=== PATIENT | male | born 1970 | race Caucasian/White ===

== ENCOUNTER 2023-04-11 15:42 | Emergency (ER) | payer OTHER, SELFPAY ==
[2023-04-11 15:46] VITALS: BP 163/100
[2023-04-11 16:07] LABS: % Basophils 0.5 % (0-2); % Eosinophils 1.6 % (0-6); % Immature Granulocytes 0.3 % (0-0.5); % Lymphocytes 39.8 % (20.5-51.1); % Monocytes 7.8 % (1.7-9.3); Absolute Eosinophils 0.1 10^3/uL (0-0.7); Absolute Lymphocytes 2.9 10^3/uL (1.2-3.4); Absolute Monocytes 0.6 10^3/uL (0.1-0.6); Absolute Neutrophils 3.6 10^3/uL (1.4-6.5); Hematocrit 40.7 % (39.0-52.0); Hemoglobin 14.3 g/dL (13.0-18.0); Mean Corp Hgb Conc. 35.1 g/dL (33.0-37.0); Mean Corpuscular Hgb 30.1 pg (27.0-31.0); Mean Corpuscular Volume 85.7 fL (80.0-94.0); Mean Platelet Volume 9.7 fL (7.4-10.4); Nucleated Red Blood Cells % 0 % (-); Platelet Count 237 10^3/uL (130-400); Red Blood Cell Count 4.75 10^6/uL (4.70-6.10); Red Cell Dist. Width 11.9 % (11.5-14.5); White Blood Cell Count 7.3 10^3/uL (4.8-10.8)
[2023-04-11 16:30] LABS: Troponin I < 0.012 ng/ml
[2023-04-11 16:31] LABS: ALT (SGPT) 34 U/L (0-50); AST (SGOT) 24 U/L (17-59); Albumin 4.2 g/dl (3.5-5.0); Alkaline Phosphatase 73 U/L (38-126); Blood Urea Nitrogen 14 mg/dl (9-20); Calcium 9.6 mg/dl (8.4-10.2); Carbon Dioxide 28 mmol/L (22-30); Chloride 95 mmol/L (98-107); Glucose 273 mg/dl (70-99); Potassium 4.8 mmol/L (3.5-5.1); Sodium 134 mmol/L (135-145); Total Bilirubin 0.7 mg/dl (0.2-1.3); Total Protein 6.6 g/dl (6.3-8.2); eGFR > 60.00
[2023-04-11 17:13] VITALS: BMI 32.6
[2023-04-11 17:19] VITALS: BP 129/97
[2023-04-11 18:00] VITALS: BP 127/92
[2023-04-11] MEDS: NSS 1000 IV (18:30)
[2023-04-11] MEDS: TYLENOL 650 MG PO (18:30)
[2023-04-11 19:17] LABS: Lipase 108 U/L (23-300)
--- NOTE | 2023-04-11 19:20 | ED.GENMED ---
History of Present Illness
General
Chief Complaint: Chest Pain
Source: patient
Exam Limitations: none
Time Seen by Provider: 04/11/23 17:20
Nursing documentation reviewed up to this point in time: agreed with
Travel History
Have you had any contact with someone who has COVID-19?: No
Do you have any symptoms of coronavirus? Fever > 100 degrees, chills, cough, shortness of breath, sore throat, loss of taste or smell, muscle aches, or headache?: No
History of Present Illness
History of Present Illness:
pt is a 52 y/o IDDM, gerd
former alcohol abuse
anxiety
pt says he used to be on a lot of BP meds and used to be 300 pounds, alcoholic
in 2014- he went into recovery and lost weight and has been doing well the past few years
he does have h/o GERD
says he drank someone else's coffee in the afternoon 2 days ago and hasn't felt right ever since.
he chronically has tachycardia, russell being here
he used to be on med to help with that but stopped
he is having some pleuritic pain
took a dose of nitro with minimal relief, it was old;
no nausea, vomiting, diarphoresis, cough
Past History
Past History
ED Past Medical History: GERD, HTN (has not been taking his bp meds as he ran out of insurance. He use to see a director public policy and was taking Metoprolol, clonidine.), IDDM and Other (Lumbar disc disease)
ED Past Surgical History: Orthopedic
Social History
Tobacco: Former smoker (5 a day)
Alcohol: Occasional
Drug: None
Personal:
Living: with family
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
Family History
Family History: Early CAD (as above)
Review of Systems
Review of Systems
Allergies reviewed?: Yes
All Other Systems: Not applicable
Phy Exam
Physical Exam
Physical Exam:
GENERAL: Alert anxious
EYE: pupils equal and reactive
NECK: Supple
ENT: o/p clr, mmm.
CARDIAC tachycardia
some mild edema legs
LUNGS: , diminished, no acute respiratory distress, no wheezes/rales/rhonchi
ABDOMEN: Soft, without focal tenderness, no r/g, no cvat, normal bowel sounds
NEUROLOGICAL: Alert and oriented, no focal neuro deficits
SKIN: Warm and dry, skin intact.
MUSCULOSKELETAL: mild edema, well perfused. neg jimmy's sign
PSYCH: Normal and appropriate interaction.
Scores
Heart Score for Chest Pain Patients
STEMI patient?: No
History: Slightly or Non-Suspicious
ECG: Nonspecific Repolarization
Age: >45 - <65 years
Risk Factors: 1 or 2 Risk Factors
Troponin: </= Normal Limit
Heart Score for Chest Pain Patients: 3
Heart Score Risk: 2.5% MACE over next 6 weeks
Course
Orders/Labs/Results
Orders:
Orders
04/11/23 15:43
ECG [Electrocardiogram (*1)] Urgent
Reason for Study: Chest Pain
EKG- Treatment ONCE
04/11/23 15:56
Comprehensive Metabolic Panel Urgent
Lipase Urgent
Comment: ADD ON
Troponin I Urgent
04/11/23 15:57
Complete Blood Count/With Diff Urgent
04/11/23 18:24
CT Chest Pe Study Urgent
Comment:
Reason For Exam: left rib pain, lightheaded, tachy
0.9% Sodium Chloride 1000 ml [Nss] 1,000 ml IV BOLUS
Acetaminophen [Tylenol] 650 mg PO NOW STA
04/11/23 18:25
EKG- Treatment ONCE
04/11/23 18:26
Add On- LAB Urgent
Tests Added?: lipase
04/11/23 19:00
Electrocardiogram (*1) Urgent
Reason for Study: Chest Pain
04/11/23 19:08
Troponin I Urgent
Abnormal Lab Results
04/11/23
15:56
Sodium 134 L mmol/L
(135-145)
Chloride 95 L mmol/L
(98-107)
Glucose 273 H mg/dl
(70-99)
04/11/23 15:57
04/11/23 15:56
Vital Signs
Initial and Last Documented VS:
Initial Vital Signs
Temp Pulse Resp BP Pulse Ox
98.2 F 93 16 163/100 98
04/11/23 15:46 04/11/23 15:46 04/11/23 15:46 04/11/23 15:46 04/11/23 15:46
Last Documented Vital Signs
Temp Pulse Resp BP Pulse Ox
98.2 F 116 21 127/92 96
04/11/23 15:46 04/11/23 19:00 04/11/23 19:00 04/11/23 18:00 04/11/23 19:00
MDM/Problems Addressed
Differential Diagnosis Includes:
anxiety, PE, asthma, chf
MDM/Problems Addressed:
52 y/o M wit hh/o IDDM, former alcohol abuse
anxiety
here with cp x 2 days
drank someone elses coffee and hasn't felt right,
feels tight
seems anxious
tachycardic but says this is common for him
w/u for PE/acs
neg -->
pt is hyperglycemic
needs outaptient fu but no indication for hopsitalization.
pt says he will restart his bb for his tachycardia if it persists.
*Critical Care Note
Total Time (30-74mins, 75-104mins- exclusive of procedures): Not Applicable
ED Attending Note
-
Portions of this chart may have been created with voice recognition software.� Occasional wrong word or��sound alike� substitutions may have occurred due to the inherent limitations of voice recognition software.
Discharge Plan
Departure
Patient Disposition: Home (Routine Discharge)
Date of Disposition: 04/11/23
Time of Disposition: 19:57
Patient with high blood pressure during this ER visit?: Yes
Condition: Fair
Covid-19: Not Applicable
Discharge Problem:
Chest pain, Tachycardia, Hyperglycemia
Instructions: Chest Pain NON-DHP Personal Care Aid Follow Up, BLOOD PRESSURE
Prescriptions:
No Action
calcium carbonate [Oyster Shell Calcium 500] 500 MG tablet
500 mg PO DAILY
magnesium oxide 500 MG tablet
500 mg PO DAILY
insulin aspart U-100 [Novolog FlexPen U-100 Insulin] 300 UNITS/3 ML insulin pen
0 units SC .SLIDING SCALE
Patient Comments:
12/24/20 - sliding scale based on carb intake
zinc sulfate 220 MG capsule
220 mg PO DAILY
cholecalciferol (vitamin D3) 1,000 UNITS tablet
1,000 units PO DAILY
insulin glargine [Lantus Solostar U-100 Insulin] 300 UNITS/3 ML insulin pen
16 units SC HS
multivitamin with folic acid [Tab-A-Diamatne] 1 TABLET tablet
1 tab PO DAILY
ibuprofen 200 MG tablet
800 mg PO DAILYPRN PRN (Reason: back/shoulder pain)
Referrals:
Erickson Salgado MD [Active] - Follow up in 5-7 days (cardiology)
UNKNOWN - PT DOES,NOT KNOW [Family Provider] -
Activity Restrictions/Additional Instructions:
Your blood work was negative for signs of a heart attack. You did have an elevated sugar, make sure to dose your insulin appropriately. Your CAT scan was negative for a blood clot. You did have a high resting heart rate which she said you have
had a history of before. You should follow-up with your family doctor, you may need to be restarted on medication for this. Not sure what is causing your chest pain but it does not seem to be an emergency. Please follow-up with both your
director public policy and your family doctor. If you do not wish to go back to your old director public policy you can see [facility]
Interventions
Interventions:
*Risk Screen - Suicide Last Done: 04/11/23 17:13
*General Assessment Last Done: 04/11/23 17:13
*Neglect/Abuse Screening Last Done: 04/11/23 17:13
ED- Fall Risk Assessment Last Done: 04/11/23 17:19
*ED COVID-19 Vaccine History Last Done: 04/11/23 15:46
*Nursing Disposition Last Done: 04/11/23 20:14
ED- Cardiac Assessment Last Done: 04/11/23 17:19
Discharge Date and Time
Discharge Date/Time: 04/11/23 20:15
[2023-04-11 19:45] LABS: Troponin I < 0.012 ng/ml
== END 2023-04-11 20:15 | disposition home or self-care (01) ==
LOC: EMR 15:42
PROVIDERS: Emergency Medicine; Physician Assistant; EMERGENCY PHYSICIAN Emergency Medicine
DX: R07.89 Other chest pain (principal); R00.0 Tachycardia, unspecified; E11.65 Type 2 diabetes mellitus with hyperglycemia; K21.9 Gastro-esophageal reflux disease without esophagitis; F10.10 Alcohol abuse, uncomplicated; F41.9 Anxiety disorder, unspecified
CPT/HCPCS: 99284; 96360; 71275; 80053; 83690; 84484; 85025; 93005; Q9967

== ENCOUNTER 2024-03-12 17:55 | Emergency (ER) | payer OTHER, SELFPAY ==
[2024-03-12 18:20] VITALS: BP 155/112
--- NOTE | 2024-03-12 18:20 | ED.MUSCINJ ---
HPI-Injury
General
Chief Complaint: Musculo-Skeletal Complaint
History of Present Illness-Injury
Initial Injury comments:
..
ED Provider Triage
-
Patient seen by provider in Triage?: Seen in Triage
Attestation: A medical screening examination has been initiated by a qualified medical provider. Based on the assessment performed at this time, it has been determined that an emergent medical condition may exist and the patient has been informed
that further medical evaluation and possible additional diagnostic testing may be needed.
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
Has also had painful 'bumps' along his lower lip.
Has not had Trulicity in stock so hasn't taken it in two weeks.
GENERAL: Alert , in no apparent distress
EYE: No visual abnormalities.
NECK: Trachea midline
ENT: No visible abnormalities.
LUNGS: No acute respiratory distress
NEUROLOGICAL: Alert and oriented
SKIN: Few small tender lesions lower lip vermilion border. Pad of right thumb is swollen and tender, erythematous at the nail line. No visible changes.
MUSCULOSKELETAL: Moving extremities normally
PSYCH: Normal and appropriate interaction.
This is a medical evaluation conducted in person to initiate diagnostic evaluation and provide initial therapeutics. Please see further documentation by the treating clinician.
Past History
Past History
ED Past Medical History: GERD, HTN (has not been taking his bp meds as he ran out of insurance. He use to see a roll or tape edge machine operator and was taking Metoprolol, clonidine.), IDDM and Other (Lumbar disc disease)
ED Past Surgical History: Orthopedic
Social History
Tobacco: Former smoker (5 a day)
Alcohol: Occasional
Drug: None
Personal:
Living: with family
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
Family History
Family History: Early CAD (as above)
Phy Exam
Physical Exam
Physical Exam:
..
Injury Course
Orders/Labs/Results
Orders:
Orders
03/12/24 18:26
Thumb/Finger 2 View Rt [CR Finger(s)/thumb Min 2 Vw Rt] Urgent
Comment:
Reason For Exam: pain, pad looks infected, IDDM
03/12/24 18:36
Complete Blood Count/With Diff Urgent
Comprehensive Metabolic Panel Urgent
Abnormal Lab Results
03/12/24
18:36
WBC 11.6 H 10^3/uL
(4.8-10.8)
RBC 4.50 L 10^6/uL
(4.70-6.10)
Hct 38.6 L %
(39.0-52.0)
MPV 10.8 H fL
(7.4-10.4)
Abs Immat Gran (auto) 0.1 H 10^3/uL
(0-0.05)
Absolute Neuts (auto) 8.1 H 10^3/uL
(1.4-6.5)
Absolute Monos (auto) 0.9 H 10^3/uL
(0.1-0.6)
Lymphocytes % 19.0 L %
(20.5-51.1)
Sodium 128 L mmol/L
(135-145)
Chloride 90 L mmol/L
(98-107)
BUN 21 H mg/dl
(9-20)
Glucose 502 H* mg/dl
(70-99)
03/12/24 18:36
03/12/24 18:36
*Critical Care Note
Total Time (30-74mins, 75-104mins- exclusive of procedures): Not Applicable
ED Attending Note
-
Portions of this chart may have been created with voice recognition software.� Occasional wrong word or��sound alike� substitutions may have occurred due to the inherent limitations of voice recognition software.
Discharge Plan
Departure
Patient Disposition: Elopement
Prescriptions:
No Action
calcium carbonate [Oyster Shell Calcium 500] 500 MG tablet
500 mg PO DAILY
magnesium oxide 500 MG tablet
500 mg PO DAILY
insulin aspart U-100 [Novolog FlexPen U-100 Insulin] 300 UNITS/3 ML insulin pen
0 units SC .SLIDING SCALE
Patient Comments:
12/24/20 - sliding scale based on carb intake
zinc sulfate 220 MG capsule
220 mg PO DAILY
cholecalciferol (vitamin D3) 1,000 UNITS tablet
1,000 units PO DAILY
insulin glargine [Lantus Solostar U-100 Insulin] 300 UNITS/3 ML insulin pen
16 units SC HS
multivitamin with folic acid [Tab-A-Diamante] 1 TABLET tablet
1 tab PO DAILY
ibuprofen 200 MG tablet
800 mg PO DAILYPRN PRN (Reason: back/shoulder pain)
Referrals:
UNKNOWN,NO INTERVIEW [Family Provider] -
Interventions
Interventions:
*Risk Screen - Suicide Last Done: 03/12/24 18:20
*General Assessment Last Done: 03/12/24 18:20
*Neglect/Abuse Screening Last Done: 03/12/24 18:20
*Nursing Disposition Last Done: 03/12/24 19:53
Discharge Date and Time
Discharge Date/Time: 03/12/24 19:53
Print Language: ICELANDIC
[2024-03-12 18:58] LABS: % Basophils 0.3 % (0-2); % Eosinophils 1.9 % (0-6); % Immature Granulocytes 0.4 % (0-0.5); % Monocytes 7.9 % (1.7-9.3); % Neutrophils 70.5 % (42.2-75.2); Absolute Eosinophils 0.2 10^3/uL (0-0.7); Absolute Immature Granulocytes 0.1 10^3/uL (0-0.05); Absolute Lymphocytes 2.2 10^3/uL (1.2-3.4); Absolute Monocytes 0.9 10^3/uL (0.1-0.6); Absolute Neutrophils 8.1 10^3/uL (1.4-6.5); Hematocrit 38.6 % (39.0-52.0); Hemoglobin 13.6 g/dL (13.0-18.0); Mean Corp Hgb Conc. 35.2 g/dL (33.0-37.0); Mean Corpuscular Hgb 30.2 pg (27.0-31.0); Mean Corpuscular Volume 85.8 fL (80.0-94.0); Mean Platelet Volume 10.8 fL (7.4-10.4); Nucleated Red Blood Cells % 0 % (-); Platelet Count 221 10^3/uL (130-400); White Blood Cell Count 11.6 10^3/uL (4.8-10.8)
[2024-03-12 19:12] LABS: AST (SGOT) 26 U/L (17-59); Albumin 4.3 g/dl (3.5-5.0); Alkaline Phosphatase 83 U/L (38-126); Blood Urea Nitrogen 21 mg/dl (9-20); Calcium 9.1 mg/dl (8.4-10.2); Carbon Dioxide 24 mmol/L (22-30); Chloride 90 mmol/L (98-107); Glucose 502 mg/dl (70-99); Potassium 4.6 mmol/L (3.5-5.1); Sodium 128 mmol/L (135-145); Total Bilirubin 0.4 mg/dl (0.2-1.3); Total Protein 6.8 g/dl (6.3-8.2); eGFR > 60.00
[2024-03-12 19:23] LABS: ALT (SGPT) 41 U/L (0-50)
== END 2024-03-12 19:53 | disposition left against medical advice (07) ==
LOC: EMR 17:55
PROVIDERS: Registered Nurse
DX: E11.65 Type 2 diabetes mellitus with hyperglycemia (principal); E87.1 Hypo-osmolality and hyponatremia; Z87.891 Personal history of nicotine dependence; Z53.21 Procedure and treatment not carried out due to patient leaving prior to being seen by health care provider
CPT/HCPCS: 99281; 73140; 80053; 85025

== ENCOUNTER 2024-03-13 23:23 | Inpatient (IN) | payer OTHER, SELFPAY ==
[2024-03-13 19:26] VITALS: BP 179/115
--- NOTE | 2024-03-13 19:48 | ED.GENMED ---
ED Provider Triage
<Swetha Posey PA-C - Last Filed: 03/13/24 19:48>
-
Patient seen by provider in Triage?: Seen in Triage
pt is a
History of Present Illness
<Swetha Posey PA-C - Last Filed: 03/13/24 19:48>
General
Chief Complaint: Blood Sugar Problem
Time Seen by Provider: 03/13/24 21:14
<BERENICE Nichols - Last Filed: 03/14/24 00:30>
General
Source: patient
Exam Limitations: none
History of Present Illness
History of Present Illness:
This is a 53 year old male that comes in with c/o lower lip swelling. Patient was seen here yesterday for a thumb issue and signed out AMA. States that today he went to the PCP as he had a pimple on the lower lip and he popped it. States that know
his lip is swollen and its hard for him to swallow. States that the PCP told him to come back to the Emergency room. States that he has a headache. Denies any fever, chills, chest pain, SOB, abd pain, nausea, vomiting, diarrhea, dizziness, urinary
burning.
Past History
<Swetha Posey PA-C - Last Filed: 03/13/24 19:48>
Past History
ED Past Medical History: GERD, HTN (has not been taking his bp meds as he ran out of insurance. He use to see a principal planner and was taking Metoprolol, clonidine.), IDDM and Other (Lumbar disc disease)
ED Past Surgical History: Orthopedic
Social History
Tobacco: Former smoker (5 a day)
Alcohol: Occasional
Drug: None
Personal:
Living: with family
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
Family History
Family History: Early CAD (as above)
<BERENICE Nichols - Last Filed: 03/14/24 00:30>
Past History
ED Past Medical History: Asthma, Psychiatric (Anxiety, ) and Other (Lumbar disc disease, left leg fracture, )
ED Past Surgical History: Orthopedic (Jaw reconstruction) and Other (Varicose vein surgery, )
Social History
Tobacco: Former smoker (5 a day, Use to vap and chew tobacco)
Alcohol: Former
Personal:
Review of Systems
<BERENICE Nichols - Last Filed: 03/14/24 00:30>
Review of Systems
All Other Systems: ROS reviewed and negative except as documented in HPI and ROS
Constitutional: Reports no symptoms; Denies fever or chills
EENT: Reports other (Lower lip swelling, Difficulty swallowing)
Respiratory: Reports no symptoms; Denies cough or trouble breathing
Cardiac: Reports no symptoms; Denies chest pain
ABD/GI: Reports no symptoms; Denies abdominal pain, nausea, vomiting or diarrhea
: Reports no symptoms; Denies dysuria, frequency or urgency
Musculoskeletal: Reports no symptoms
Skin: Reports no symptoms
Neurological: Reports headache; Denies dizzy
Psychiatric: Reports no symptoms
Phy Exam
<BERENICE Nichols - Last Filed: 03/14/24 00:30>
General Physical Exam
General Presentation: no apparent distress
General age: appears stated age
General Skin: warm and dry
General Habitus: normal
General Mental: alert and anxious
General Hydration: appears well hydrated
ENT Exam
ENT Exam: TM's normal, pharynx normal, neck supple and other (Lower lip swelling with redness. )
Eye Exam
Eye Exam: EOMI
Cardiovascular Exam
Cardiovascular Exam: no edema, normal peripheral pulses and tachycardia
Pulmonary Exam
Pulmonary Exam: lungs clear, no respiratory distress, no rales, chest non tender, no crackles, no rhonchi, no wheezing and no cough
Gastrointestinal Exam
Gastrointestinal Exam: normal bowel sounds, non tender, soft, no organomegaly, no pulsatile mass and non distended
Musculoskeletal Exam
Musculoskeletal Exam: full ROM, no edema and other (Hard palpable mass on the left lateral neck just under the ear. )
Skin Exam
Skin Exam: normal color, warm/dry, no petechia and redness (Lower lip with swelling. )
Psychiatric Exam
Psychiatric Exam: anxious
Course
<Swetha Posey PA-C - Last Filed: 03/13/24 19:48>
Orders/Labs/Results
Orders:
Orders
03/13/24 Breakfast
2200 calorie (18 carb) Diabetic
At Your Request: Full Participation
03/13/24 19:44
BHB [B-Hydroxybutyrate] Urgent
Complete Blood Count/With Diff Urgent
Comprehensive Metabolic Panel Urgent
03/13/24 21:27
Urinalysis Reflex To Culture Urgent
0.9% Sodium Chloride 1000 ml [Nss] 1,000 ml IV BOLUS
03/13/24 21:29
Insulin Aspart [NOVOLOG vial] 10 units SC NOW STA
03/13/24 21:53
Lactic Acid Urgent
Blood Culture Q30M
LALO Source: Blood/Venous
Specimen Description:
Blood Culture Q30M
LALO Source: Blood/Venous
Specimen Description:
03/13/24 22:30
HYDROmorphone [Dilaudid] 0.5 mg IV NOW STA
Meropenem [Merrem] 1,000 mg IV NOW STA
Ondansetron Injectable [Zofran] 4 mg IV NOW STA
03/13/24 22:32
Vancomycin [Vancocin] 2,000 mg 0.9% Sodium Chloride 500 ml [Nss] 500 ml IV NOW
03/13/24 22:54
CT Neck With Iv Contrast Urgent
Comment:
Reason For Exam: lower lip swelling extending to neck/submental reg
03/13/24 23:04
Admit/Transfer Patient As Directed
Co-Sign Provider:
Level of Care: Inpatient admission
Assign to:: Telemetry
Physician / Group: haim
Diagnosis: cellulitis
Reason for Telemetry: Other
Other Reason for Telemetry: tachcyardia
Date to Stop Telemetry: 03/15/24
Time to Stop Telemetry: 11:00
Reason for Hospitalization: cellulitis
Expected length of stay greater than two midnights?: Yes
ELOS- Estimated Length of Stay in days: 3
I certify the patient meets the requirements for IP care: Yes
03/13/24 23:05
Code Status As Directed
Resuscitation Status: Full Code
PRN Pain Medication Management As Directed
May give lesser potent ordered pain med per pt: Yes
preference::
Protocol:: Medication orders for pain may be administered in a
manner that supports deferring to patient preference
when the pt is:
- Requesting an ordered lesser potent pain medication.
Least to most potent pain medications are defined
as: acetaminophen < NSAID < tramadol < opioids
(morphine, oxycodone, hydromorphone).
- Requesting a lesser dose of the same medication IF
ORDERED.
- Requesting a less intrusive route of administration
if both routes are prescribed by the provider (PO <
IV).
03/13/24 23:34
0.9% Sodium Chloride 1000 ml [Nss] 1,000 ml IV 140 mls/hr
Acetaminophen [Tylenol/Feverall] 650 mg RECTAL Q4HPRN PRN
Acetaminophen [Tylenol] 650 mg PO Q4HPRN PRN
Dextrose 50%-Water [Dextrose 50% Syringe] 12.5 grams IV [id number] PRN
Glucagon [GlucaGen] 1 mg IM PRN PRN
HYDROmorphone [Dilaudid] 1 mg IV Q4HPRN PRN
Labetalol HCl [Trandate] 10 mg IV Q6HPRN PRN
VANCOMYCIN Pharmacy to Dose [VANCOCIN Pharmacy to Dose] 1 each Pharmacy To Prepare [Call Pharmacy To Prepare] 0 ml IV PER PROTOCOL
Zolpidem Tartrate [Ambien] 5 mg PO HSPRN PRN
03/13/24 23:34
Activity As Directed
Activity Level: Out of Bed-Early Mobility
Bedside Glucose Monitoring As Directed
Frequency: AC&HS
Additional Instructions:: Change to q6h if pt on TPN, tube feeding or not eating
Intake/ Output As Directed
Frequency: Per unit guidelines
Vital Signs As Directed
Frequency: Per unit guidelines
DX Deep Vein Thrombosis Video Routine
03/14/24 04:00
Lactic Acid Q6H
03/14/24 06:00
BMP [Basic Metabolic Panel] IN AM
Complete Blood Count/No Diff IN AM
Glycohemoglobin (HgbA1c) IN AM
Meropenem [Merrem] 500 mg IV Q6H
03/14/24 07:30
Insulin Aspart Corrective Mod [Novolog Flexpen-Moderate Resistance] See Protocol SC AC
03/14/24 08:00
Pantoprazole [Protonix] 40 mg PO DAILY
03/14/24 10:00
Lactic Acid Q6H
03/14/24 18:00
Enoxaparin Sodium [Lovenox] 40 mg SC QPM
03/15/24 06:00
BMP [Basic Metabolic Panel] IN AM
Complete Blood Count/No Diff IN AM
03/15/24 11:00
DC Protocol for Telemetry ONCE
03/16/24 06:00
BMP [Basic Metabolic Panel] IN AM
Complete Blood Count/No Diff IN AM
03/17/24 06:00
Complete Blood Count/No Diff IN AM
Abnormal Lab Results
03/13/24 03/13/24
19:44 21:53
WBC 22.8 H 10^3/uL
(4.8-10.8)
RBC 4.65 L 10^6/uL
(4.70-6.10)
MPV 10.5 H fL
(7.4-10.4)
Abs Immat Gran (auto) 0.1 H 10^3/uL
(0-0.05)
Absolute Neuts (auto) 19.3 H 10^3/uL
(1.4-6.5)
Absolute Monos (auto) 1.4 H 10^3/uL
(0.1-0.6)
Immature Gran % 0.6 H %
(0-0.5)
Neutrophils % 84.6 H %
(42.2-75.2)
Lymphocytes % 8.0 L %
(20.5-51.1)
Sodium 127 L mmol/L
(135-145)
Chloride 88 L mmol/L
(98-107)
BUN 26 H mg/dl
(9-20)
Creatinine 0.6 L mg/dL
(0.7-1.3)
Glucose 414 H mg/dl
(70-99)
Lactic Acid 2.2 H mmol/L
(0.7-2.0)
03/13/24 19:44
03/13/24 19:44
Vital Signs
Initial and Last Documented VS:
Initial Vital Signs
Temp Pulse Resp BP Pulse Ox
98.1 F 104 20 179/115 98
03/13/24 19:26 03/13/24 19:26 03/13/24 19:26 03/13/24 19:26 03/13/24 19:26
Last Documented Vital Signs
Temp Pulse Resp BP Pulse Ox
99.6 F 104 20 179/115 98
03/13/24 21:58 03/13/24 19:26 03/13/24 19:26 03/13/24 19:26 03/13/24 19:26
<BERENICE Nichols - Last Filed: 03/14/24 00:30>
Orders/Labs/Results
Orders:
Orders
03/13/24 Breakfast
2200 calorie (18 carb) Diabetic
At Your Request: Full Participation
03/13/24 19:44
BHB [B-Hydroxybutyrate] Urgent
Complete Blood Count/With Diff Urgent
Comprehensive Metabolic Panel Urgent
03/13/24 21:27
Urinalysis Reflex To Culture Urgent
0.9% Sodium Chloride 1000 ml [Nss] 1,000 ml IV BOLUS
03/13/24 21:29
Insulin Aspart [NOVOLOG vial] 10 units SC NOW STA
03/13/24 21:53
Lactic Acid Urgent
Blood Culture Q30M
LALO Source: Blood/Venous
Specimen Description:
Blood Culture Q30M
LALO Source: Blood/Venous
Specimen Description:
03/13/24 22:30
HYDROmorphone [Dilaudid] 0.5 mg IV NOW STA
Meropenem [Merrem] 1,000 mg IV NOW STA
Ondansetron Injectable [Zofran] 4 mg IV NOW STA
03/13/24 22:32
Vancomycin [Vancocin] 2,000 mg 0.9% Sodium Chloride 500 ml [Nss] 500 ml IV NOW
03/13/24 22:54
CT Neck With Iv Contrast Urgent
Comment:
Reason For Exam: lower lip swelling extending to neck/submental reg
03/13/24 23:04
Admit/Transfer Patient As Directed
Co-Sign Provider:
Level of Care: Inpatient admission
Assign to:: Telemetry
Physician / Group: haim
Diagnosis: cellulitis
Reason for Telemetry: Other
Other Reason for Telemetry: tachcyardia
Date to Stop Telemetry: 03/15/24
Time to Stop Telemetry: 11:00
Reason for Hospitalization: cellulitis
Expected length of stay greater than two midnights?: Yes
ELOS- Estimated Length of Stay in days: 3
I certify the patient meets the requirements for IP care: Yes
03/13/24 23:05
Code Status As Directed
Resuscitation Status: Full Code
PRN Pain Medication Management As Directed
May give lesser potent ordered pain med per pt: Yes
preference::
Protocol:: Medication orders for pain may be administered in a
manner that supports deferring to patient preference
when the pt is:
- Requesting an ordered lesser potent pain medication.
Least to most potent pain medications are defined
as: acetaminophen < NSAID < tramadol < opioids
(morphine, oxycodone, hydromorphone).
- Requesting a lesser dose of the same medication IF
ORDERED.
- Requesting a less intrusive route of administration
if both routes are prescribed by the provider (PO <
IV).
03/13/24 23:34
0.9% Sodium Chloride 1000 ml [Nss] 1,000 ml IV 140 mls/hr
Acetaminophen [Tylenol/Feverall] 650 mg RECTAL Q4HPRN PRN
Acetaminophen [Tylenol] 650 mg PO Q4HPRN PRN
Dextrose 50%-Water [Dextrose 50% Syringe] 12.5 grams IV [id number] PRN
Glucagon [GlucaGen] 1 mg IM PRN PRN
HYDROmorphone [Dilaudid] 1 mg IV Q4HPRN PRN
Labetalol HCl [Trandate] 10 mg IV Q6HPRN PRN
VANCOMYCIN Pharmacy to Dose [VANCOCIN Pharmacy to Dose] 1 each Pharmacy To Prepare [Call Pharmacy To Prepare] 0 ml IV PER PROTOCOL
Zolpidem Tartrate [Ambien] 5 mg PO HSPRN PRN
03/13/24 23:34
Activity As Directed
Activity Level: Out of Bed-Early Mobility
Bedside Glucose Monitoring As Directed
Frequency: AC&HS
Additional Instructions:: Change to q6h if pt on TPN, tube feeding or not eating
Intake/ Output As Directed
Frequency: Per unit guidelines
Vital Signs As Directed
Frequency: Per unit guidelines
DX Deep Vein Thrombosis Video Routine
03/14/24 04:00
Lactic Acid Q6H
03/14/24 06:00
BMP [Basic Metabolic Panel] IN AM
Complete Blood Count/No Diff IN AM
Glycohemoglobin (HgbA1c) IN AM
Meropenem [Merrem] 500 mg IV Q6H
03/14/24 07:30
Insulin Aspart Corrective Mod [Novolog Flexpen-Moderate Resistance] See Protocol SC AC
03/14/24 08:00
Pantoprazole [Protonix] 40 mg PO DAILY
03/14/24 10:00
Lactic Acid Q6H
03/14/24 18:00
Enoxaparin Sodium [Lovenox] 40 mg SC QPM
03/15/24 06:00
BMP [Basic Metabolic Panel] IN AM
Complete Blood Count/No Diff IN AM
03/15/24 11:00
DC Protocol for Telemetry ONCE
03/16/24 06:00
BMP [Basic Metabolic Panel] IN AM
Complete Blood Count/No Diff IN AM
03/17/24 06:00
Complete Blood Count/No Diff IN AM
Abnormal Lab Results
03/13/24 03/13/24
19:44 21:53
WBC 22.8 H 10^3/uL
(4.8-10.8)
RBC 4.65 L 10^6/uL
(4.70-6.10)
MPV 10.5 H fL
(7.4-10.4)
Abs Immat Gran (auto) 0.1 H 10^3/uL
(0-0.05)
Absolute Neuts (auto) 19.3 H 10^3/uL
(1.4-6.5)
Absolute Monos (auto) 1.4 H 10^3/uL
(0.1-0.6)
Immature Gran % 0.6 H %
(0-0.5)
Neutrophils % 84.6 H %
(42.2-75.2)
Lymphocytes % 8.0 L %
(20.5-51.1)
Sodium 127 L mmol/L
(135-145)
Chloride 88 L mmol/L
(98-107)
BUN 26 H mg/dl
(9-20)
Creatinine 0.6 L mg/dL
(0.7-1.3)
Glucose 414 H mg/dl
(70-99)
Lactic Acid 2.2 H mmol/L
(0.7-2.0)
03/13/24 19:44
03/13/24 19:44
Leukocytosis, Hyponatremia. Chloride low. Dehydration. Hyperglycemia. B-Hydroxybutyrate normal at 0.11, Anion gap 13
Vital Signs
Initial and Last Documented VS:
Initial Vital Signs
Temp Pulse Resp BP Pulse Ox
98.1 F 104 20 179/115 98
03/13/24 19:26 03/13/24 19:26 03/13/24 19:26 03/13/24 19:26 03/13/24 19:26
Last Documented Vital Signs
Temp Pulse Resp BP Pulse Ox
99.6 F 104 20 179/115 98
03/13/24 21:58 03/13/24 19:26 03/13/24 19:26 03/13/24 19:26 03/13/24 19:26
<Duran Winter MD - Last Filed: 03/13/24 22:54>
Orders/Labs/Results
Orders:
Orders
03/13/24 Breakfast
2200 calorie (18 carb) Diabetic
At Your Request: Full Participation
03/13/24 19:44
BHB [B-Hydroxybutyrate] Urgent
Complete Blood Count/With Diff Urgent
Comprehensive Metabolic Panel Urgent
03/13/24 21:27
Urinalysis Reflex To Culture Urgent
0.9% Sodium Chloride 1000 ml [Nss] 1,000 ml IV BOLUS
03/13/24 21:29
Insulin Aspart [NOVOLOG vial] 10 units SC NOW STA
03/13/24 21:53
Lactic Acid Urgent
Blood Culture Q30M
LALO Source: Blood/Venous
Specimen Description:
Blood Culture Q30M
LALO Source: Blood/Venous
Specimen Description:
03/13/24 22:30
HYDROmorphone [Dilaudid] 0.5 mg IV NOW STA
Meropenem [Merrem] 1,000 mg IV NOW STA
Ondansetron Injectable [Zofran] 4 mg IV NOW STA
03/13/24 22:32
Vancomycin [Vancocin] 2,000 mg 0.9% Sodium Chloride 500 ml [Nss] 500 ml IV NOW
03/13/24 22:54
CT Neck With Iv Contrast Urgent
Comment:
Reason For Exam: lower lip swelling extending to neck/submental reg
03/13/24 23:04
Admit/Transfer Patient As Directed
Co-Sign Provider:
Level of Care: Inpatient admission
Assign to:: Telemetry
Physician / Group: haim
Diagnosis: cellulitis
Reason for Telemetry: Other
Other Reason for Telemetry: tachcyardia
Date to Stop Telemetry: 03/15/24
Time to Stop Telemetry: 11:00
Reason for Hospitalization: cellulitis
Expected length of stay greater than two midnights?: Yes
ELOS- Estimated Length of Stay in days: 3
I certify the patient meets the requirements for IP care: Yes
03/13/24 23:05
Code Status As Directed
Resuscitation Status: Full Code
PRN Pain Medication Management As Directed
May give lesser potent ordered pain med per pt: Yes
preference::
Protocol:: Medication orders for pain may be administered in a
manner that supports deferring to patient preference
when the pt is:
- Requesting an ordered lesser potent pain medication.
Least to most potent pain medications are defined
as: acetaminophen < NSAID < tramadol < opioids
(morphine, oxycodone, hydromorphone).
- Requesting a lesser dose of the same medication IF
ORDERED.
- Requesting a less intrusive route of administration
if both routes are prescribed by the provider (PO <
IV).
03/13/24 23:34
0.9% Sodium Chloride 1000 ml [Nss] 1,000 ml IV 140 mls/hr
Acetaminophen [Tylenol/Feverall] 650 mg RECTAL Q4HPRN PRN
Acetaminophen [Tylenol] 650 mg PO Q4HPRN PRN
Dextrose 50%-Water [Dextrose 50% Syringe] 12.5 grams IV [id number] PRN
Glucagon [GlucaGen] 1 mg IM PRN PRN
HYDROmorphone [Dilaudid] 1 mg IV Q4HPRN PRN
Labetalol HCl [Trandate] 10 mg IV Q6HPRN PRN
VANCOMYCIN Pharmacy to Dose [VANCOCIN Pharmacy to Dose] 1 each Pharmacy To Prepare [Call Pharmacy To Prepare] 0 ml IV PER PROTOCOL
Zolpidem Tartrate [Ambien] 5 mg PO HSPRN PRN
03/13/24 23:34
Activity As Directed
Activity Level: Out of Bed-Early Mobility
Bedside Glucose Monitoring As Directed
Frequency: AC&HS
Additional Instructions:: Change to q6h if pt on TPN, tube feeding or not eating
Intake/ Output As Directed
Frequency: Per unit guidelines
Vital Signs As Directed
Frequency: Per unit guidelines
DX Deep Vein Thrombosis Video Routine
03/14/24 04:00
Lactic Acid Q6H
03/14/24 06:00
BMP [Basic Metabolic Panel] IN AM
Complete Blood Count/No Diff IN AM
Glycohemoglobin (HgbA1c) IN AM
Meropenem [Merrem] 500 mg IV Q6H
03/14/24 07:30
Insulin Aspart Corrective Mod [Novolog Flexpen-Moderate Resistance] See Protocol SC AC
03/14/24 08:00
Pantoprazole [Protonix] 40 mg PO DAILY
03/14/24 10:00
Lactic Acid Q6H
03/14/24 18:00
Enoxaparin Sodium [Lovenox] 40 mg SC QPM
03/15/24 06:00
BMP [Basic Metabolic Panel] IN AM
Complete Blood Count/No Diff IN AM
03/15/24 11:00
DC Protocol for Telemetry ONCE
03/16/24 06:00
BMP [Basic Metabolic Panel] IN AM
Complete Blood Count/No Diff IN AM
03/17/24 06:00
Complete Blood Count/No Diff IN AM
Abnormal Lab Results
03/13/24 03/13/24
19:44 21:53
WBC 22.8 H 10^3/uL
(4.8-10.8)
RBC 4.65 L 10^6/uL
(4.70-6.10)
MPV 10.5 H fL
(7.4-10.4)
Abs Immat Gran (auto) 0.1 H 10^3/uL
(0-0.05)
Absolute Neuts (auto) 19.3 H 10^3/uL
(1.4-6.5)
Absolute Monos (auto) 1.4 H 10^3/uL
(0.1-0.6)
Immature Gran % 0.6 H %
(0-0.5)
Neutrophils % 84.6 H %
(42.2-75.2)
Lymphocytes % 8.0 L %
(20.5-51.1)
Sodium 127 L mmol/L
(135-145)
Chloride 88 L mmol/L
(98-107)
BUN 26 H mg/dl
(9-20)
Creatinine 0.6 L mg/dL
(0.7-1.3)
Glucose 414 H mg/dl
(70-99)
Lactic Acid 2.2 H mmol/L
(0.7-2.0)
03/13/24 19:44
03/13/24 19:44
Vital Signs
Initial and Last Documented VS:
Initial Vital Signs
Temp Pulse Resp BP Pulse Ox
98.1 F 104 20 179/115 98
03/13/24 19:26 03/13/24 19:26 03/13/24 19:26 03/13/24 19:26 03/13/24 19:26
Last Documented Vital Signs
Temp Pulse Resp BP Pulse Ox
99.6 F 104 20 179/115 98
03/13/24 21:58 03/13/24 19:26 03/13/24 19:26 03/13/24 19:26 03/13/24 19:26
<BERENICE Nichols - Last Filed: 03/14/24 00:30>
MDM/Problems Addressed
Differential Diagnosis Includes:
Cellulitis of the lower lip. Hyperglycemia.
MDM/Problems Addressed:
This is a 53 year old male that comes in with c/o lower lip swelling. States that yesterday he was here for his Thumb and signed out AMA. Today he went to the PCP and he told him to come back to the ER. States that his lip has increased swelling
as he picked a pimple and that he has some difficulty swallowing. States that the left sided of his neck is sore
Will check labs, CT neck, give IV fluids and Insulin. Explained to patient that he will be admitted. Dr. Winter to see patient.
Chronic conditions affecting care: DM and Psychiatric illness (Anxious)
Acute Exacerbation and/or Progression of Chronic Illness: DM
<BERENICE Nichols - Last Filed: 03/14/24 00:30>
*Radiology
Radiology exam reviewed: radiology read reviewed (CT neck- night hawk- Multiple fluid collections along the lower lips, largest of which measure approximately 2.6X.1.2cm within the left hannah (series 201 image 39), and small right-sided collections,
likely too small to drain. Collections are concerning for underlying abscesses. The airway remains) and all reviewed NAD by ED Provider (CT cont- airway remains patent. Scattered cervical nodes are likely reactive. Cervical carotid and vertebral
arteries are patent, as are both internal jugular veins. NO suspicious lytic or sclerotic lesions within the skull base or cervical spine. )
*Pulse Oximetry
Patient hypoxic: no
*EKG
Interpreted by ED Provider?: NA
Rate: EKG- N/A
*Molding Utility Worker Interpretation
Rate: Molding Utility Worker- N/A
*Critical Care Note
Total Time (30-74mins, 75-104mins- exclusive of procedures): Not Applicable
ED Attending Note
<Swetha Posey PA-C - Last Filed: 03/13/24 19:48>
-
Portions of this chart may have been created with voice recognition software.� Occasional wrong word or��sound alike� substitutions may have occurred due to the inherent limitations of voice recognition software.
<Duran Winter MD - Last Filed: 03/13/24 22:54>
ED Attending Note
Patient seen and examined by attending physician: Yes
ED Attending Note:
I have seen and evaluated the patient with a [id number] encounter. I have spoken to the advance practicer provider and involved in the medical history, the physical exam, medical decision making.
Evaluation and management service: agree unless noted differently below.
Results interpretation: agree unless noted differently below.
Focused HPI: 53-year-old male with history of insulin-dependent diabetes, alcohol abuse, anxiety, GERD who presents to the ER for evaluation of lower lip pain and swelling. Patient was here yesterday for thumb pain was seen in triage but ultimately
left prior to full assessment and treatment. He says that he noticed a bump/pimple on his lower lip yesterday and when he went home he popped the pimple. In the evening time he says that he started to have some pain and swelling in the lip and
wound woke up this morning it was significantly worse. Symptoms have worsened throughout the day and so he ultimately came back to the emergency room. He has not had any fever. He denies any swelling of the tongue or throat. He denies any
shortness of breath or coughing. He denies any nausea, vomiting, abdominal pain. He denies any rash or pruritus. He says that he did take an old dose of an antibiotic yesterday but 1 that he has had many times before (he cannot recall the name).
Physical exam: Awake alert anxious but not toxic. Hypertensive, tachycardic. He has marked swelling of the lower lip and he has erythema extending from the lower lip down to the chin. He has tenderness to the chin and some slight tenderness in
the submental region but no induration or brawniness of the submental region. No tongue elevation. There is no swelling of the tongue. His uvula is midline without edema and he has no stridor and is handling his secretions. He does have some
right sided cervical adenopathy. His lungs are clear to auscultation. He has no hives or rash. His abdomen is nontender. He does have some erythema of his right thumb minor.
Medical Decision Makin-year-old male presents with swelling and pain of the left after popping a pimple in that region. Vitals and exam as above. Concern for cellulitis/abscess. He had labs sent off including CBC which showed a leukocytosis.
CMP shows hyponatremia with hyperglycemia�treat with insulin and fluids. He is not in DKA. Will send for a CT of the neck/face; treat with antibiotics. Admit for continued management.
Discharge Plan
Departure
Patient Disposition: Admit
Date of Disposition: 03/13/24
Time of Disposition: 22:36
Admit to: Med/Surg
Presentation/result/management discussed w/ accepting MD/DO: Hospitalist
Patient with high blood pressure during this ER visit?: Yes
Condition: Good
Covid-19: Not Applicable
Discharge Problem:
Cellulitis lower lip, Acute hyponatremia, Acute hyperglycemia
Interventions
Interventions:
*Risk Screen - Suicide Last Done: 03/13/24 19:26
*General Assessment Last Done: 03/13/24 19:26
*Neglect/Abuse Screening Last Done: 03/13/24 19:26
ED- Fall Risk Assessment Last Done: 03/13/24 22:04
*Nursing Disposition Last Done: 03/14/24 00:27
ED- Neurological Assessment Last Done: 03/13/24 22:04
[2024-03-13 20:00] LABS: % Basophils 0.3 % (0-2); % Eosinophils 0.4 % (0-6); % Immature Granulocytes 0.6 % (0-0.5); % Monocytes 6.1 % (1.7-9.3); % Neutrophils 84.6 % (42.2-75.2); Absolute Basophils 0.1 10^3/uL (0-0.2); Absolute Eosinophils 0.1 10^3/uL (0-0.7); Absolute Immature Granulocytes 0.1 10^3/uL (0-0.05); Absolute Lymphocytes 1.8 10^3/uL (1.2-3.4); Absolute Monocytes 1.4 10^3/uL (0.1-0.6); Absolute Neutrophils 19.3 10^3/uL (1.4-6.5); Hematocrit 39.2 % (39.0-52.0); Mean Corp Hgb Conc. 35.7 g/dL (33.0-37.0); Mean Corpuscular Hgb 30.1 pg (27.0-31.0); Mean Corpuscular Volume 84.3 fL (80.0-94.0); Mean Platelet Volume 10.5 fL (7.4-10.4); Nucleated Red Blood Cells % 0 % (-); Platelet Count 239 10^3/uL (130-400); Red Blood Cell Count 4.65 10^6/uL (4.70-6.10); Red Cell Dist. Width 12.1 % (11.5-14.5); White Blood Cell Count 22.8 10^3/uL (4.8-10.8)
[2024-03-13 20:06] LABS: ALT (SGPT) 38 U/L (0-50); AST (SGOT) 26 U/L (17-59); Albumin 4.8 g/dl (3.5-5.0); Alkaline Phosphatase 110 U/L (38-126); Blood Urea Nitrogen 26 mg/dl (9-20); Calcium 9.5 mg/dl (8.4-10.2); Carbon Dioxide 26 mmol/L (22-30); Chloride 88 mmol/L (98-107); Glucose 414 mg/dl (70-99); Potassium 4.2 mmol/L (3.5-5.1); Sodium 127 mmol/L (135-145); Total Bilirubin 0.7 mg/dl (0.2-1.3); Total Protein 7.6 g/dl (6.3-8.2); eGFR > 60.00
[2024-03-13 20:13] LABS: B-Hydroxybutyrate 0.11 mmol/L (0.02-0.27)
[2024-03-13] MEDS: NSS 1000 IV (21:44)
[2024-03-13] MEDS: NOVOLOG vial 10 UNITS SC (21:48)
[2024-03-13 21:58] VITALS: BMI 29.9
[2024-03-13 22:13] LABS: Lactic Acid 2.2 mmol/L (0.7-2.0)
--- NOTE | 2024-03-13 22:37 | HPS.HSE ---
Family Physician
-
Family Physician: Jude Chow
Chief Complaint
-
swollen lips
right great toe swelling.
History of Present Illness
53 year old male with PMH for HTN, type 2 Dm that comes in with c/o lower lip swelling. he popped the pimples underneath his lips and noted to worsening swelling and redness. patient stated painful to swallow. he did not eat or drink today.
Patient was seen here yesterday for a thumb swelling and signed out AMA. he moved the concrete on Tuesday, and on Tuesday he noticed the right thumb was swollen and painful. denied fever, chills, ORELLANA, dizzy or syncope.denied chest pain, sob. denied
abdominal pain,n,v,d.denied dysuria or hematuria.
patient received Dilaudid, insulin 10units, Merrem, normal saline, Zofran and vanco in ER. admitting for further management.
patient was evaluated in ER yesterday for right thumb, but signed out AMA. he was sent on Cephalexin but she did not take the meds.
Medical History
Past Medical History
Past Medical History: Reports Other
Additional Past Medical History:
migraine ORELLANA
kidney stones
bipolar
htn
GERD
arthritis
low back pain
alcoholism
DM
Past Surgical History: Reports None
Social History
Tobacco: Vaping
Alcohol: Occasional
Drug: None
Family History
Family History: Not pertinent
Allergies / Home Medications
Allergies reflects when Allergies were last updated in [facility].
Home Medications with original date entered in [facility]
Allergy/Medication List:
Allergies
Allergy/AdvReac Type Severity Reaction Status Date / Time
cat dander Allergy Swelling Verified 03/12/24 18:27
Cephalosporins Allergy Unknown Verified 03/12/24 18:27
morphine Allergy Nausea Verified 03/12/24 18:27
Penicillins Allergy Unknown Verified 03/12/24 18:27
Home Medications
ibuprofen 200 mg tablet 800 mg PO DAILYPRN PRN back/shoulder pain 12/24/20
insulin glargine 100 unit/mL (3 mL) subcutaneous pen (Lantus Solostar U-100 Insulin) 22 units SC HS 12/24/20
cephalexin 500 mg tablet 500 mg PO QID 03/13/24
omeprazole 40 mg capsule,delayed release 40 mg PO DAILY 03/13/24
tramadol 50 mg tablet 50 mg PO TIDPRN PRN moderate pain 03/13/24
zolpidem 5 mg tablet 5 mg PO HSPRN PRN sleep 03/13/24
Review of Systems
-
Constitutional: Reports No Symptoms
EENT: Reports No Symptoms
Respiratory: Reports No Symptoms
Cardiac: Reports No Symptoms
Abdomen/GI: Reports No Symptoms
: Reports No Symptoms
Musculoskeletal: Reports No Symptoms
Skin: Reports Other (swollen lips, right thumb swollen and painful)
Neurological: Reports No Symptoms
Endocrine: Reports No Symptoms
Hematologic/Lymphatic: Reports No Symptoms
Psych: Reports No Symptoms
Physical Exam
Vital Signs
Vital Signs
Temp Pulse Resp BP Pulse Ox
99.6 F 104 20 179/115 98
03/13/24 21:58 03/13/24 19:26 03/13/24 19:26 03/13/24 19:26 03/13/24 19:26
Physical Exam
General: Well Developed, Well Nourished and No Apparent Distress
HEENT: NormoCephalic, Moist mucous membranes and Atraumatic
Respiratory: Clear
Cardiac: S1/S2 and Regular Rhythm; No Murmur or Rub
GI: Soft, Non Tender, Non Distended and Normal Bowel Sounds; No Organomegaly
Rectal: Deferred by Provider
Musculoskeletal: No Clubbing, No Cyanosis and No Edema
Skin: Rash and Other (lips swollen, right great thumb swollen and red)
Neuro: AO x 3 and Nonfocal/grossly intact
Psych: Calm
Laboratory Results
-
03/13/24 19:44
03/13/24 19:44
Laboratory Results
Lactic Acid 2.2 mmol/L (0.7-2.0) H 03/13/24 21:53
Total Bilirubin 0.7 mg/dl (0.2-1.3) 03/13/24 19:44
AST 26 U/L (17-59) 03/13/24 19:44
ALT 38 U/L (0-50) 03/13/24:44
Alkaline Phosphatase 110 U/L (38-126) 03/13/24 19:44
Data Reviewed
-
Diagnostic Radiology: Report Reviewed by me
Lab Data: Labs Reviewed by me
Impression/Plan
-
#lower lip cellulitis
-sepsis as evident by wbc 22.8, lactic 2.2, tachycardia
-blood culture sent from ER
-iv vanco and Merrem in ER
-Tylenol , Dilaudid prn for fever and pain
-trend lactic
#difficulty swallowing unclear cause
-will obtain CT
-ctm
#pseudohyponatremia
-na 127, correct na 135
#type 2 Dm with hyperglycemia
-blood sugar in 400's
-sliding scale
-CHo diet
-received 10units in ER
-Lantus 22u at hs
#hypertension emergency
-BP elevated in ER
-added labetalol
#GERD
-PPI
#DVT prophylaxis
-Lovenox
#CODE status
-full code
[2024-03-13] MEDS: MERREM 1000 MG IV (22:41)
[2024-03-13] MEDS: ZOFRAN 4 MG IV (22:41)
[2024-03-13] MEDS: DILAUDID 0.5 MG IV (22:41)
[2024-03-13] MEDS: VANCOCIN 540 MG IV (22:44)
--- NOTE | 2024-03-13 23:38 | W.PN.UPDATE ---
Update Note
Progress Note Update
This is an addendum to the H&P written by Letitia Reynolds on 03/13/2024. Patient seen and examined independently with HORTICULTURAL NURSERY ASSISTANT.
53-year-old male past medical history of hypertension not treated, GERD, hyperlipidemia, alcohol use disorder, anxiety, migraines, nephrolithiasis, bipolar disorder, GERD, arthritis, diabetes, presenting with lower lip swelling and pain after he
popped a pimple today on the right lower lip. He also complains of pain with swallowing, discomfort and swelling in his neck particularly on the left side. Denies shortness of breath. No fevers or chills.
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 He left AMA yesterday.
Patient with blood pressure of 179/115, tachycardia.
Labs show stable hyponatremia with sodium of 127. Blood sugar 414. Lactic acid 2.2. Leukocytosis of 22. Patient states that he has not been able to get his Trulicity prescription from his primary and has not taken it for a few weeks. He has
been taking his Lantus 22 units at nighttime.
Concern for cellulitis of the lower lip from popped pimple. Unclear why he is having neck swelling and difficulty/pain swallowing. No reason that he should have angioedema given the history of ruptured pimple.
Finger x-ray from yesterday unremarkable. The finger itself appears unremarkable without evidence of active infection.
Patient received IV fluids. Blood cultures pending. Given allergies vancomycin/meropenem started. CT neck to evaluate for angioedema versus other causes of dysphagia such as peritonsillar abscess.
Hyperglycemia is likely secondary to Trulicity noncompliance/infection. Resume 22 units of glargine. Moderate insulin sliding scale.
IV labetalol for hypertension likely exacerbated by pain, also possibly with uncontrolled hypertension.
[2024-03-14 00:27] VITALS: BMI 30.7
--- NOTE | 2024-03-14 00:30 | PTCARENOTE ---
Pt arrived to room 417-01. Pt ambulated from stretcher to bed. Pt AAOx3, VSS. Pt c/o pain to lower lip. Pt oriented to room, call guevara placed within reach.
[2024-03-14] MEDS: NSS 1000 IV ×3 (00:58→18:06)
[2024-03-14 01:29] LABS: Glucose - Point of Care 211 mg/dl (70-99)
[2024-03-14] MEDS: MOTRIN 800 MG PO ×3 (01:33→18:46)
[2024-03-14] MEDS: AMBIEN 5 MG PO ×2 (01:33→22:24)
[2024-03-14] MEDS: LANTUS 0.22 UNITS SC ×2 (01:55→22:24)
[2024-03-14] MEDS: DILAUDID 1 MG IV ×5 (02:00→22:45)
[2024-03-14 03:21] VITALS: BP 181/98
[2024-03-14] MEDS: TRANDATE 10 MG IV ×2 (03:26→19:54)
[2024-03-14 04:45] LABS: Lactic Acid 1.5 mmol/L (0.7-2.0)
[2024-03-14] MEDS: STERILE WATER FOR INJECTION 10 ML IV ×2 (06:23→11:10)
[2024-03-14] MEDS: MERREM 500 MG IV ×2 (06:24→11:11)
[2024-03-14 06:46] VITALS: BP 187/99
[2024-03-14 07:37] LABS: Hematocrit 36.1 % (39.0-52.0); Hemoglobin 12.7 g/dL (13.0-18.0); Mean Corp Hgb Conc. 35.2 g/dL (33.0-37.0); Mean Corpuscular Hgb 30.2 pg (27.0-31.0); Platelet Count 205 10^3/uL (130-400); Red Cell Dist. Width 12.2 % (11.5-14.5); White Blood Cell Count 22.8 10^3/uL (4.8-10.8)
[2024-03-14 07:52] LABS: Glucose - Point of Care 314 mg/dl (70-99)
[2024-03-14 08:05] LABS: Blood Urea Nitrogen 15 mg/dl (9-20); Calcium 8.7 mg/dl (8.4-10.2); Carbon Dioxide 27 mmol/L (22-30); Chloride 92 mmol/L (98-107); Estimated Creatinine Clearance > 125 ml/min; Glucose 332 mg/dl (70-99); Potassium 4.4 mmol/L (3.5-5.1); Sodium 130 mmol/L (135-145); eGFR > 60.00
[2024-03-14] MEDS: PROTONIX 40 MG PO (08:27)
[2024-03-14] MEDS: NOVOLOG FLEXPEN-MODERATE RESISTANCE 7 UNITS SC ×3 (08:28→18:09)
--- NOTE | 2024-03-14 08:44 | W.PN.HOSP.TC ---
Addendum entered and electronically signed by Frandy Puri MD 03/14/24 22:07:
Attending Addendum-
I saw and evaluated the patient. I reviewed the resident�s note and agree with findings and plan as documented in the resident�s note. Sub: complain sof pain at lip and occasional difficulty swallowing. Denies SOB fevers chills. Full 12 point ROS
reviewed and negative except as documented Exam: Vitals reviewed in chart GEN-NAD HEENT- lower lip swollen red tender lungs no stridor CTA B/L and soft LE no edema
#Sepsis secondary to lower lip cellulitis
-blood culture sent from ER
-DC vanco and Merrem change to clindamycin
-Tylenol , Dilaudid prn for fever and pain
-leukocytosis-stable
-LA elevated repeat in am
-repeat in am
# Dysphagia
-CT 03/14-Edematous changes and enlargement of the soft tissues of the lower lip. Likely several small fluid collections, largest as noted above without air bubbles or air-fluid level. Fluid collections could represent small abscesses.
-ctm
-t/c ENT c/s if sxs progress
# Pseudohyponatremia
-corrected na @ normal
-trend
#type 2 Dm with hyperglycemia
- uncontrolled- hba1c 9.2
- add mealtime novolog 5u
- cont sliding scale
- received 10units in ER
- Lantus 22u at hs
#hypertension urgency
-BP elevated in ER
-add losartan
- add IV prn anti HTN
#GERD
-PPI
#DVT prophylaxis
-Lovenox
#CODE status
-full code
Time spent coordinating care, review of plan of care with resident, personally reviewed records in EMR, med rec, consults, notes, labs, radiology, d/w nursing � 59 mins
Original Note:
Today's Communication/Plan
-
Blood culture pending
Continue pain control as needed
Start patient on losartan
Assessment / Plan
Assessment / Plan
Patient is a 53-year-old male with past medical history of hypertension, type 2 diabetes mellitus and noncompliant on medication who presents to [facility] with lower lip swelling after popping the pimples underneath his lips.
#Lower lip cellulitis
SIRS criteria met with white blood cell elevated at 22.8 at admission, lactic acid of 2.2 and tachycardia
MRSA and Blood cultures pending
1 dose of vancomycin and meropenem given in ER
transition vancomycin to clindamycin and continue meropenem
Tylenol and Dilaudid as needed for ongoing pain control
Continue to trend lactic acid and white blood cell count
#Difficulty swallowing secondary to cellulitis
CT of neck shows Edematous changes and enlargement of the soft tissues of the lower lip. Likely several small fluid collections, largest as noted above without air bubbles or air-fluid level. Fluid collections could represent small abscesses.
#hyponatrmia
at time of admission 127, now 130
Continue fluids
#type 2 Dm with hyperglycemia
Blood sugar in 400s at time of admission
Started patient on Lantus 20 2 at night
Start novolog 5 with meals
Continue to monitor sugars
Diabetic diet
#hypertension emergency
Blood pressure elevated in ER, remains elevated at 180/109 this morning
Labetalol given in ED
Started patient on losartan 50 mg daily
Continue to monitor blood pressures
#GERD
Continue PPI
#DVT prophylaxis
Lovenox
#Full code
Anticipated Discharge: 24 - 48 hours
Subjective/Interval History
-
Date of Service: March 14, 2024
Patient is a 53-year-old male with past medical history of hypertension, type 2 diabetes mellitus and noncompliant on medication who presents to [facility] with lower lip swelling after popping the pimples underneath his lips. In the ED he
was given Dilaudid, insulin 10 units, meropenem, normal saline, Zofran and vancomycin. He states he has never had an incident like this before. He is having pain in the lower lip, gum and tonsillar region but does not feel that he is having
difficulty breathing. He is having some mild difficulty with swallowing. He reports no chest pain, shortness of breath, nausea, vomiting. He states his pain is uncontrolled on Dilaudid and Motrin and that tramadol gives him a headache.
Objective Data
-
Labs:
Laboratory Results
03/14/24
06:19
WBC 22.8 H
Hgb 12.7 L
Hct 36.1 L
Plt Count 205
Sodium 130 L
Potassium 4.4
Chloride 92 L
Carbon Dioxide 27
BUN 15
Creatinine 0.6 L
Glucose 332 H
Calcium 8.7
Vital Signs:
Vital Signs
Temp Pulse Resp BP Pulse Ox
98.2 F 94 18 187/99 97
03/14/24 06:46 03/14/24 06:46 03/14/24 06:46 03/14/24 06:46 03/14/24 06:46
I&O
03/13/24 03/14/24 03/15/24
06:59 06:59 06:59
Output Total 750 / 750 400 / 400
Balance -750 / -750 -400 / -400
Review of Systems
-
History Source: Patient
Constitutional: Reports Other (Pain of lower lip and throat)
EENT: Reports Sore Throat, Mouth Pain and Mouth Swelling
Respiratory: Reports No Symptoms
Cardiac: Reports No Symptoms
Genitourinary: Reports No Symptoms
Skin: Reports Other (Cellulitis of lower lip)
Neuro: Reports No Symptoms
Psych: Reports Anxious
Physical Exam
-
General: Appears in Distress, Pain and Conversant
HEENT: Normocephalic and Atraumatic
Respiratory: Clear to Auscultation
Cardiac: Regular Rhythm and S1/S2
GI: Soft and Nontender
Skin: Warm, Dry and Other (Significant swelling of lower lip)
Neuro: AO x 3
Psych: Agitated and Anxious
Data Reviewed
-
CT Scan: Report Reviewed by me
Labs: Labs Reviewed by me and Discussed with Physician
Old Records: Reviewed
[2024-03-14 08:58] LABS: Glycohemoglobin (HgbA1c) 9.2 % (4.0-5.6)
--- NOTE | 2024-03-14 09:13 | PHA.VAN.IN ---
Assessment
- Assessment
Renal Function: Appears similar to baseline
Concomitant Antimicrobials: meropenem
AUC Dosing Plan
- Dosing Variables
Dosing Weight (kg): 102
Dosing CrCl (ml/min): 125
Vd coefficient (L/kg): 0.7
- Empiric Dosing
Initial / Loading Dose: 2000mg - 03/13 22:44
Maintenance Regimen: Vanc 1500mg Q12H starting at 1800
Estimated AUC (mcg*h/mL): 490
Estimated Peak (mcg*h/mL): 33.7
Estimated Trough (mcg/ml): 10.8
Estimated Half Life (H): 6.4
- Monitoring
No levels ordered at this time: consider levels in next few days
Pharmacokinetics Vancomycin I
- -
Patient Age: 53
Patient Sex: Male
Vancomycin Day #: 1
Indication: Skin And Soft Tissue
Requesting Provider: Sarwat Reynolds
Pertinent Antimicrobial Allergies:
penicillins - unknown
cephalosporins - unknown
Height / Weight:
Height 6 ft
Actual Weight 102.421 kg
Pertinent Past Medical History: BMI ~30.6, DM 2
- Vital Signs / Lab Results
Temp Pulse Resp BP Pulse Ox
98.2 F 94 18 187/99 97
03/14/24 06:46 03/14/24 06:46 03/14/24 06:46 03/14/24 06:46 03/14/24 06:46
Lab Results - Hematology
03/13/24 03/14/24
19:44 06:19
WBC 22.8 H 22.8 H
Lab Results - Chemistry
03/13/24 03/14/24
19:44 06:19
BUN 26 H 15
Creatinine 0.6 L 0.6 L
Estimated Creat Clear > 125
Albumin 4.8
03/13/24 03/14/24
21:53 04:10
Lactic Acid 2.2 H 1.5
[2024-03-14 10:08] LABS: Urine Albumin Negative (Neg - Trace); Urine Bilirubin Negative (Negative); Urine Character Clear (Clear); Urine Color Yellow; Urine Glucose 3+ (Negative); Urine Ketone Negative (Negative); Urine Leukocyte Negative (Negative); Urine Nitrite Negative (Negative); Urine Occult Blood Negative (Negative); Urine Urobilinogen Negative (Neg - 1+)
[2024-03-14 10:19] LABS: Lactic Acid 2.5 mmol/L (0.7-2.0)
[2024-03-14 11:00] VITALS: BP 163/94
[2024-03-14] MEDS: COZAAR 50 MG PO (11:09)
[2024-03-14 12:31] LABS: Glucose - Point of Care 326 mg/dl (70-99)
[2024-03-14 15:00] VITALS: BP 169/94
[2024-03-14] MEDS: CLEOCIN 50 IV ×2 (15:09→22:25)
[2024-03-14 16:36] LABS: Glucose - Point of Care 414 mg/dl (70-99)
--- NOTE | 2024-03-14 16:48 | CM ---
animal husbandry manager reviewed patient's chart and met with patient and patient states he lives alone is independent with adl's and ambulation, no dme, patient drives but does not currently have a car. Home when stable, will follow for any needs at
discharge.
PCP: Dr Chow
Pharmacy: [facility]
Plan; Home when stable.
[2024-03-14 17:08] LABS: Glucose 348 mg/dl (70-99)
[2024-03-14] MEDS: LOVENOX 40 MG SC (17:08)
[2024-03-14] MEDS: NOVOLOG FLEXPEN 5 UNITS SC (18:10)
[2024-03-14] MEDS: STERILE WATER FOR INJECTION IV ×3 (18:19→22:41)
--- NOTE | 2024-03-14 18:54 | W.PN.UPDATE ---
Update Note
Progress Note Update
Called to see patient at bedside due to difficulty swallowing. Patient seen and examined at bedside.
Complaining of Irritation in the throat and mouth. States it is more irritation than pain in the throat, although admits pain to the lower lip (site of cellulitis). He can swallow Saliva appropriately without pain. Patient has not had his dinner yet
at the time of examination. He was given Dilaudid IV 1mg one hour ago. States he was pain free after administration of Dilaudid, but now pain to the lower lip has returned. He denies SOB, denies chest pain, denies choking feeling. Examination of
Mouth, tongue and tonsils showed no evidence of bleeding, erythema, exudate. No flushing of face, no hives, no swelling of eyes. �Lips swollen, unchanged from this morning. Spoke to Nurse at bedside. Will give Motrin 800mg dose now for pain.
Evaluate again during and after dinner for any difficulty swallowing liquids or solids.
[2024-03-14 19:30] VITALS: BP 202/133
[2024-03-14 21:28] LABS: Glucose - Point of Care 302 mg/dl (70-99)
[2024-03-14 23:16] VITALS: BP 166/106
[2024-03-15] VITALS (8 sets, daily range): BP systolic 150–184; BP diastolic 94–120
[2024-03-15] MEDS: MOTRIN 800 MG PO ×4 (00:48→18:49)
[2024-03-15] MEDS: NSS 1000 IV ×2 (00:50→16:58)
[2024-03-15] MEDS: TRANDATE 10 MG IV (03:11)
[2024-03-15] MEDS: CLEOCIN 50 IV ×3 (05:07→21:37)
[2024-03-15] MEDS: ATIVAN 0.5 MG PO (06:11)
[2024-03-15 07:08] LABS: % Basophils 0.2 % (0-2); % Eosinophils 0.4 % (0-6); % Immature Granulocytes 0.6 % (0-0.5); % Lymphocytes 7.8 % (20.5-51.1); % Monocytes 6.4 % (1.7-9.3); % Neutrophils 84.6 % (42.2-75.2); Absolute Eosinophils 0.1 10^3/uL (0-0.7); Absolute Immature Granulocytes 0.1 10^3/uL (0-0.05); Absolute Lymphocytes 1.4 10^3/uL (1.2-3.4); Absolute Monocytes 1.2 10^3/uL (0.1-0.6); Absolute Neutrophils 15.6 10^3/uL (1.4-6.5); Hematocrit 37.7 % (39.0-52.0); Hemoglobin 13.1 g/dL (13.0-18.0); Mean Corp Hgb Conc. 34.7 g/dL (33.0-37.0); Mean Corpuscular Hgb 29.7 pg (27.0-31.0); Mean Corpuscular Volume 85.5 fL (80.0-94.0); Mean Platelet Volume 10.5 fL (7.4-10.4); Nucleated Red Blood Cells % 0 % (-); Platelet Count 201 10^3/uL (130-400); Red Blood Cell Count 4.41 10^6/uL (4.70-6.10); White Blood Cell Count 18.4 10^3/uL (4.8-10.8)
[2024-03-15 08:00] LABS: ALT (SGPT) 28 U/L (0-50); AST (SGOT) 22 U/L (17-59); Albumin 4.2 g/dl (3.5-5.0); Alkaline Phosphatase 121 U/L (38-126); Blood Urea Nitrogen 14 mg/dl (9-20); Calcium 9.1 mg/dl (8.4-10.2); Carbon Dioxide 24 mmol/L (22-30); Chloride 93 mmol/L (98-107); Estimated Creatinine Clearance > 125 ml/min; Glucose 285 mg/dl (70-99); Potassium 4.3 mmol/L (3.5-5.1); Sodium 131 mmol/L (135-145); Total Bilirubin 1.1 mg/dl (0.2-1.3); eGFR > 60.00
[2024-03-15 08:50] LABS: Glucose - Point of Care 294 mg/dl (70-99)
[2024-03-15] MEDS: NOVOLOG FLEXPEN-MODERATE RESISTANCE 5 UNITS SC (09:02)
[2024-03-15] MEDS: PROTONIX 40 MG PO (09:03)
[2024-03-15] MEDS: NOVOLOG FLEXPEN 5 UNITS SC ×3 (09:03→18:19)
[2024-03-15] MEDS: COZAAR 50 MG PO (09:04)
--- NOTE | 2024-03-15 09:54 | W.PN.HOSP.TC ---
Addendum entered and electronically signed by Frandy Puri MD 03/15/24 19:17:
Attending Addendum-
I saw and evaluated the patient. I reviewed the resident�s note and agree with findings and plan as documented in the resident�s note. Sub: complains of intense pain at lip and occasional difficulty swallowing. tearful. feels what swelling has
worsened. Denies SOB fevers chills. Full 12 point ROS reviewed and negative except as documented Exam: Vitals reviewed in chart GEN-NAD HEENT- lower lip intensely swollen red tender with crusting lungs no stridor CTA B/L and soft LE no edema
#Sepsis secondary to lower lip cellulitis
-blood culture sent from ER
-DC vanco and Merrem cont clindamycin day# 2
-Tylenol , Dilaudid prn for fever and pain
-leukocytosis-improving
-LA trending down
-CT 03/14-Edematous changes and enlargement of the soft tissues of the lower lip. Likely several small fluid collections, largest as noted above without air bubbles or air-fluid level. Fluid collections could represent small abscesses.
-ENT c/s- may need I and D of abscess
# H/O ETOH abuse
- had a 1/5 of etoh due to pain
- had some sober time under his belt prior to this unfortunately
- start MSAS
# Pseudohyponatremia
-corrected na @ normal
-trend
#type 2 Dm with hyperglycemia
- uncontrolled- hba1c 9.2
- increase mealtime novolog 5u->8u
- cont sliding scale
- received 10units in ER
- increase Lantus 22u->26u at hs
#hypertension urgency
-uncontrolled
-increase losartan
- add norvasc
- add IV prn anti HTN
#GERD
-PPI
#DVT prophylaxis
-Lovenox
#CODE status
-full code
Time spent coordinating care, review of plan of care with resident, personally reviewed records in EMR, med rec, consults, notes, labs, radiology, d/w nursing ENT � 58 mins
Original Note:
Today's Communication/Plan
-
ENT consulted
Norvasc started
Losartan increased to 100
MSAS started
Assessment / Plan
Assessment / Plan
Patient is a 53-year-old male with past medical history of hypertension, type 2 diabetes mellitus and noncompliant on medication who presents to [facility] with lower lip swelling after popping the pimples underneath his lips.
#Lower lip cellulitis
SIRS criteria met with white blood cell elevated at 22.8 at admission, lactic acid of 2.2 and tachycardia
MRSA and Blood cultures pending
1 dose of vancomycin and meropenem given in ER
transition vancomycin to clindamycin and continue meropenem
Tylenol and Dilaudid as needed for ongoing pain control
Continue to trend lactic acid and white blood cell count
ENT consulted
#Difficulty swallowing secondary to cellulitis
CT of neck shows Edematous changes and enlargement of the soft tissues of the lower lip. Likely several small fluid collections, largest as noted above without air bubbles or air-fluid level. Fluid collections could represent small abscesses.
ENT
#hyponatrmia
at time of admission 127, now 130
Continue fluids
#type 2 Dm with hyperglycemia
Blood sugar in 400s at time of admission, currently 294
Started patient on Lantus 22 at night
Start novolog 5 with meals
Continue to monitor sugars
Diabetic diet
#hypertension emergency
Blood pressure elevated in ER, remains elevated at 180/109 this morning
Start Norvasc 5 mg daily
Increased dose of losartan to 100 mg daily
Continue to monitor blood pressures
# History of alcohol use disorder
Patient states last drink was last week of 1/5 of alcohol
MSAS protocol started
#GERD
Continue PPI
#DVT prophylaxis
Lovenox
#Full code
Anticipated Discharge: 24 - 48 hours
Subjective/Interval History
-
Date of Service: March 15, 2024
Yesterday evening patient was experiencing some pain in the back of the throat that he has said was causing difficulty breathing. However on further exam patient was able to breathe, but was just in significant pain. This morning he was quite
somnolent, not engaged in conversation. This morning he states to have pain. His lower lip continues to remain significantly edematous, now with yellow crusting. He reports no headaches, nausea, vomiting or chest pain.
Objective Data
-
Labs:
Laboratory Results
03/15/24
06:37
WBC 18.4 H
Hgb 13.1
Hct 37.7 L
Plt Count 201
Sodium 131 L
Potassium 4.3
Chloride 93 L
Carbon Dioxide 24
BUN 14
Creatinine 0.6 L
Glucose 285 H
Calcium 9.1
Total Bilirubin 1.1
AST 22
ALT 28
Alkaline Phosphatase 121
Vital Signs:
Vital Signs
Temp Pulse Resp BP Pulse Ox
99.1 F 107 16 173/111 95
03/15/24 07:00 03/15/24 09:04 03/15/24 07:00 03/15/24 09:04 03/15/24 07:00
I&O
03/14/24 03/15/24 03/16/24
06:59 06:59 06:59
Intake Total 3030 / 3030
Output Total 750 / 750 3935 / 3935 300 / 300
Balance -750 / -750 -905 / -905 -300 / -300
Review of Systems
-
History Source: Patient
Constitutional: Reports Fatigue
EENT: Reports Sore Throat, Mouth Pain and Mouth Swelling
Respiratory: Reports No Symptoms
Cardiac: Reports No Symptoms
Abdomen/GI: Reports No Symptoms
Musculoskeletal: Reports No Symptoms
Physical Exam
-
General: Well Developed, Well Nourished, Comfortable and Conversant (Sleepy but conversant)
HEENT: Normocephalic and Atraumatic
Respiratory: Clear to Auscultation
Cardiac: Regular Rhythm and S1/S2
GI: Soft, Nontender and Nondistended
Skin: Warm and Dry
Neuro: AO x 3
Psych: Calm
Data Reviewed
-
Old Records: Reviewed
[2024-03-15] MEDS: DILAUDID 1 MG IV ×2 (10:57→17:25)
[2024-03-15] MEDS: NORVASC 5 MG PO (12:41)
[2024-03-15 13:28] LABS: Glucose - Point of Care 323 mg/dl (70-99)
[2024-03-15] MEDS: NOVOLOG FLEXPEN-MODERATE RESISTANCE 7 UNITS SC (14:03)
[2024-03-15 17:26] LABS: Glucose - Point of Care 231 mg/dl (70-99)
--- NOTE | 2024-03-15 17:52 | W.PN.ENT ---
Today's Communication
-
s/p I and D lower lip absceses, packed, continue IV abx
Impression / Plan
-
The patient is a 53yoM with DMII and lower lip abscesses. The left side, largest abscesses were drained. The packing strip can be removed by ENT tomorrow. The gauze can be changed as needed. Culture was sent and continue IV abx. Full consult to
follow.
Subjective Data
-
The patient was seen and examined earlier in the day. Noted to have multiple small lower lip abscesses currently getting clindamycin.
Objective Data
-
Vital Signs
Temp Pulse Resp BP Pulse Ox
98.1 F 101 20 176/110 99
03/15/24 15:00 03/15/24 15:00 03/15/24 15:00 03/15/24 15:00 03/15/24 15:00
Intake & Output
03/14/24 03/15/24 03/16/24
06:59 06:59 06:59
Intake:
Oral fluids 1440 / 1440
IV fluids (Total) 1540 / 1540
IV piggybacks 50 / 50
Output:
Urine, Voided 750 / 750 3935 / 3935 1500 / 1500
Other:
Number of approximated MODERATE 2
amounts of urine
Lab Results
03/15/24 06:37
03/15/24 06:37
Calcium 9.1 mg/dl (8.4-10.2) 03/15/24 06:37
Total Bilirubin 1.1 mg/dl (0.2-1.3) 03/15/24 06:37
AST 22 U/L (17-59) 03/15/24 06:37
ALT 28 U/L (0-50) 03/15/24 06:37
Alkaline Phosphatase 121 U/L (38-126) 03/15/24 06:37
Urine Color Yellow 03/14/24 09:46
Urine Clarity Clear (Clear) 03/14/24 09:46
Urine pH 7.0 (5.0-9.0) 03/14/24 09:46
Ur Specific Post 1.010 (<1.030) 03/14/24 09:46
Urine Ketones Negative (Negative) 03/14/24 09:46
Physical Exam
-
NAD, Alert and Oriented, anxious
Lower lip severely edematous and erythematous, tense, with ecchymosis and scabs.
PROCEDURE: I and D lip abscesses
After obtaining verbal consent, the patient's skin is prepped with alcohol and povodine iodine. About 5ml of 1%lido w epi is injected into the lower lip. After about 5 minutes, a 21g needle is used to locate the abscess. Then an 11-blade is used to
make a stab incision at the laverne border. A mosquito is used to open the abscesses and pus was obtained. The wound was packed with a strip of iodoform gauze. The patient tolerated the procedure well and was given IV dilaudid and motrin.
Data Reviewed
-
Radiology Results: Image Reviewed
[2024-03-15] MEDS: NOVOLOG FLEXPEN-MODERATE RESISTANCE 3 UNITS SC (18:17)
[2024-03-15] MEDS: LOVENOX 40 MG SC (18:17)
[2024-03-15] MEDS: ATIVAN 1 MG PO (20:28)
[2024-03-15] MEDS: SENOKOT-S 1 TABLET PO (20:29)
[2024-03-15] MEDS: THIAMINE INJECTION 200 MG IV (20:30)
[2024-03-15 21:30] LABS: Glucose - Point of Care 320 mg/dl (70-99)
[2024-03-15] MEDS: LANTUS 0.26 UNITS SC (21:36)
[2024-03-15] MEDS: AMBIEN 5 MG PO (21:57)
[2024-03-16] MEDS: MOTRIN 800 MG PO ×2 (03:06→15:35)
[2024-03-16 03:40] VITALS: BP 142/84
[2024-03-16] MEDS: CLEOCIN 50 IV ×3 (05:18→21:25)
[2024-03-16 07:00] VITALS: BP 138/96
[2024-03-16] MEDS: COZAAR 100 MG PO (07:30)
[2024-03-16] MEDS: SENOKOT-S 1 TABLET PO ×2 (07:30→21:25)
[2024-03-16] MEDS: PROTONIX 40 MG PO (07:30)
[2024-03-16] MEDS: THIAMINE INJECTION 200 MG IV (07:30)
[2024-03-16] MEDS: NORVASC 5 MG PO (07:30)
--- NOTE | 2024-03-16 07:30 | W.PN.HOSP.TC ---
Addendum entered and electronically signed by Frandy Puri MD 03/16/24 19:39:
Attending Addendum-
I saw and evaluated the patient. I reviewed the resident�s note and agree with findings and plan as documented in the resident�s note. Sub: severe pain intermittently @ lower lip. Denies SOB fevers chills. Full 12 point ROS reviewed and negative
except as documented Exam: Vitals reviewed in chart GEN-NAD HEENT- lower lip intensely swollen red tender with crusting lungs packing in place no stridor CTA B/L and soft LE no edema
#Sepsis secondary to lower lip cellulitis
-blood culture-NGTD
-clindamycin day# 3
-pain control
-leukocytosis-improving
-LA trended down
-CT 03/14-Edematous changes and enlargement of the soft tissues of the lower lip. Likely several small fluid collections, largest as noted above without air bubbles or air-fluid level. Fluid collections could represent small abscesses.
-S/P I and D of abscess on 03/15- fluid sent- cx growing s aureus- sensi pend
# H/O ETOH abuse
- had a 1/5 of etoh prior to admission secondary to pain
- had some sober time under his belt prior to this unfortunately
- cont MSAS @ 4
# Pseudohyponatremia
- from hyperglycemia
- resolved with better DM control
- trend
# DM2
- uncontrolled- hba1c 9.2
- increase novolog qac 8u->12u
- cont sliding scale
- increase Lantus 26u->29u at hs
# Hypertension Urgency
- MUCH better controlled
- cont increased losartan
- cont new norvasc
- cont IV prn anti HTN
#GERD
-PPI
#DVT prophylaxis
-Lovenox
#CODE status
-full code
Time spent coordinating care, review of plan of care with resident, personally reviewed records in EMR, med rec, consults, notes, labs, radiology, d/w nursing ENT � 53 mins
Original Note:
Today's Communication/Plan
-
;/
Assessment / Plan
Assessment / Plan
Assessment/plan
# Sepsis POA secondary to lower lip cellulitis
-ENT input appreciated
-S/p incision and drainage of abscess 03/15/2024
-Wound culture-Staphylococcus aureus
-Blood culture sent from ER with no growth
-On clindamycin day #3
-Continue pain meds with Tylenol, oxycodone
-CT 03/14 Edematous changes and enlargement of the soft tissues of the lower lip. Likely several small fluid collections, largest as noted above without air bubbles or air-fluid level. Fluid collections could represent small abscesses
# History of alcohol abuse
-MSAS protocol
-Thiamine/folate/Ativan as needed
# T2DM
-A1c 9.2
-Increased NovoLog 12units, Lantus 29 units
-Coverage with SSI
# Hypertensive urgency
-Uncontrolled BP secondary to pain
-Losartan, Norvasc
-Labetalol IV as needed for optimal blood control
# GERD
-Continue PPI
DVT prophylaxis-Lovenox
CODE STATUS-full code
Anticipated Discharge: > 48 hours
Subjective/Interval History
-
Date of Service: March 16, 2024
Objective Data
-
Labs:
Laboratory Results
03/16/24
07:07
WBC Pending
Hgb Pending
Hct Pending
Plt Count Pending
Sodium Pending
Potassium Pending
Chloride Pending
Carbon Dioxide Pending
BUN Pending
Creatinine Pending
Glucose Pending
Calcium Pending
Vital Signs:
Vital Signs
Temp Pulse Resp BP Pulse Ox
97.6 F 109 18 142/84 96
03/16/24 03:40 03/16/24 03:40 03/16/24 03:40 03/16/24 03:40 03/16/24 03:40
I&O
03/15/24 03/16/24 03/17/24
06:59 06:59 06:59
Intake Total 3030 / 3030 1420 / 1420
Output Total 3935 / 3935 2300 / 2300
Balance -905 / -905 -880 / -880
Review of Systems
-
All other systems: Reviewed and negative (Except as documented)
Physical Exam
-
General: Pain; Negative Fever or Chills
HEENT: Other (Lower lip swollen, tender)
Respiratory: Clear to Auscultation
Cardiac: Regular Rhythm and S1/S2
GI: Soft, Nontender and Nondistended
Musculoskeletal: No Edema
Neuro: Awake, Alert and Oriented
[2024-03-16 07:47] LABS: Glucose - Point of Care 234 mg/dl (70-99)
[2024-03-16 07:57] LABS: Hematocrit 34.5 % (39.0-52.0); Hemoglobin 11.9 g/dL (13.0-18.0); Mean Corp Hgb Conc. 34.5 g/dL (33.0-37.0); Mean Corpuscular Hgb 30.3 pg (27.0-31.0); Mean Corpuscular Volume 87.8 fL (80.0-94.0); Mean Platelet Volume 10.7 fL (7.4-10.4); Platelet Count 199 10^3/uL (130-400); Red Blood Cell Count 3.93 10^6/uL (4.70-6.10); Red Cell Dist. Width 12.1 % (11.5-14.5); White Blood Cell Count 11.1 10^3/uL (4.8-10.8)
[2024-03-16 08:30] LABS: Blood Urea Nitrogen 11 mg/dl (9-20); Calcium 8.5 mg/dl (8.4-10.2); Carbon Dioxide 29 mmol/L (22-30); Chloride 97 mmol/L (98-107); Estimated Creatinine Clearance > 125 ml/min; Glucose 247 mg/dl (70-99); Potassium 4.1 mmol/L (3.5-5.1); Sodium 135 mmol/L (135-145); eGFR > 60.00
[2024-03-16] MEDS: NOVOLOG FLEXPEN 8 UNITS SC ×2 (09:26→12:21)
[2024-03-16] MEDS: NOVOLOG FLEXPEN-MODERATE RESISTANCE 3 UNITS SC (09:26)
[2024-03-16 11:00] VITALS: BP 147/98
[2024-03-16] MEDS: DILAUDID 1 MG IV (11:27)
[2024-03-16 12:21] LABS: Glucose - Point of Care 259 mg/dl (70-99)
[2024-03-16] MEDS: NOVOLOG FLEXPEN-MODERATE RESISTANCE 5 UNITS SC (12:21)
--- NOTE | 2024-03-16 14:25 | W.PN.ENT ---
Today's Communication
-
seen at bedside
Impression / Plan
-
The patient is a 53yoM with DMII and lower lip abscesses. The left side, largest abscesses were drained. Packing strip in left lower lip removed without problem.
Subjective Data
-
The patient was seen and examined earlier in the day. Noted to have multiple small lower lip abscesses currently getting clindamycin.
pack in place in left lower lip
Objective Data
-
Vital Signs
Temp Pulse Resp BP Pulse Ox
98.7 F 107 21 147/98 98
03/16/24 11:00 03/16/24 11:00 03/16/24 11:00 03/16/24 11:00 03/16/24 11:00
Intake & Output
03/15/24 03/16/24 03/17/24
06:59 06:59 06:59
Intake:
Oral fluids 1440 / 1440 480 / 480
IV fluids (Total) 1540 / 1540 840 / 840
IV piggybacks 50 / 50 100 / 100
Output:
Urine, Voided 3935 / 3935 2300 / 2300
Other:
Number of approximated MODERATE 2
amounts of urine
Lab Results
03/16/24 07:07
03/16/24 07:07
Calcium 8.5 mg/dl (8.4-10.2) 03/16/24 07:07
Total Bilirubin 1.1 mg/dl (0.2-1.3) 03/15/24 06:37
AST 22 U/L (17-59) 03/15/24 06:37
ALT 28 U/L (0-50) 03/15/24 06:37
Alkaline Phosphatase 121 U/L (38-126) 03/15/24 06:37
Urine Color Yellow 03/14/24 09:46
Urine Clarity Clear (Clear) 03/14/24 09:46
Urine pH 7.0 (5.0-9.0) 03/14/24 09:46
Ur Specific [place] 1.010 (<1.030) 03/14/24 09:46
Urine Ketones Negative (Negative) 03/14/24 09:46
Physical Exam
-
pack in place left lower lip.
lower lip very swollen
Chest: Clear
Respiratory: Clear
Data Reviewed
-
Radiology Results: Report Reviewed
Micro Results: Report Reviewed
[2024-03-16 15:00] VITALS: BP 129/63
--- NOTE | 2024-03-16 15:17 | CM ---
Chart reviewed plan is to home when stable, I&D, ABX needs follow up.
Plan; Home when stable.
[2024-03-16 16:45] LABS: Glucose - Point of Care 199 mg/dl (70-99)
[2024-03-16] MEDS: NOVOLOG FLEXPEN-MODERATE RESISTANCE 1 UNITS SC (17:24)
[2024-03-16] MEDS: NOVOLOG FLEXPEN 12 UNITS SC (17:24)
[2024-03-16] MEDS: LOVENOX 40 MG SC (17:25)
[2024-03-16 19:44] VITALS: BP 143/83
[2024-03-16 21:14] LABS: Glucose - Point of Care 172 mg/dl (70-99)
[2024-03-16] MEDS: THIAMINE INJECTION IV (21:24)
[2024-03-16] MEDS: ULTRAM 50 MG PO (21:25)
[2024-03-16] MEDS: AMBIEN 5 MG PO (21:25)
[2024-03-16] MEDS: LANTUS 0.29 UNITS SC (21:26)
[2024-03-16] MEDS: ATIVAN 1 MG PO (21:29)
[2024-03-16 23:51] VITALS: BP 147/98
[2024-03-17] MEDS: THIAMINE INJECTION IV ×2 (03:01→08:51)
[2024-03-17] MEDS: MOTRIN 800 MG PO ×2 (03:04→08:51)
[2024-03-17 03:29] VITALS: BP 145/98
[2024-03-17] MEDS: CLEOCIN 50 IV (05:19)
[2024-03-17 07:30] VITALS: BP 143/89
[2024-03-17 07:40] LABS: Glucose - Point of Care 189 mg/dl (70-99)
--- NOTE | 2024-03-17 08:11 | W.PN.HOSP.TC ---
Today's Communication/Plan
-
Discharge today
Assessment / Plan
Assessment / Plan
Assessment/plan
# Sepsis POA secondary to lower lip cellulitis
-ENT input appreciated
-CT 03/14 Edematous changes and enlargement of the soft tissues of the lower lip. Likely several small fluid collections, largest as noted above without air bubbles or air-fluid level. Fluid collections could represent small abscesses
-S/p incision and drainage of abscess 03/15/2024
-Wound culture-Staphylococcus aureus
-Blood culture sent from ER with no growth
-Currently on IV clindamycin day 4, medically stable for discharge on clindamycin to complete a 7-day course
�Follow-up with PCP in the office in 1 week
# History of alcohol abuse
-MSAS protocol
-Thiamine/folate/Ativan as needed
-Alcohol cessation counseling provided, will discharge on thiamine
# T2DM
-A1c 9.2
-Increased NovoLog 12units, Lantus 29 units
-Patient reports that he has Trulicity waiting for him at his pharmacy, he has not taken it for 2 months as it was out of stock
-Will discharge him on his previous insulin regimen since he will be resuming Trulicity
# Hypertensive urgency
-Uncontrolled BP secondary to pain
-Blood pressure improved on losartan 100 mg daily, Norvasc 5 mg daily�prescriptions sent to pharmacy
-Labetalol IV as needed for optimal blood control
# GERD
-Continue PPI
DVT prophylaxis-Lovenox
CODE STATUS-full code
Physical Exam
General: No acute distress
HEENT: Normocephalic, Atraumatic, EOMI, MMM
Lower lip mildly swollen, tender to palpation
Respiratory: Clear to Auscultation bilaterally
Cardiac: Normal S1/S2, Regular Rate and Rhythm
GI: Soft, Nontender, Nondistended, Normal Bowel Sounds
Extremities: No Clubbing, Cyanosis, or Edema
Neuro: Nonfocal/Grossly Intact
Psych: Calm, Cooperative
Derm: No Visible lesions
Anticipated Discharge: Today
Subjective/Interval History
-
Date of Service: March 17, 2024
Patient reports his lower lip pain is well-controlled on tramadol. Denies dysphagia, drooling. No fever, no vomiting. He feels well, is requesting discharge today.
Objective Data
-
Labs:
Laboratory Results
03/17/24
06:55
WBC Pending
Hgb Pending
Hct Pending
Plt Count Pending
Sodium Pending
Potassium Pending
Chloride Pending
Carbon Dioxide Pending
BUN Pending
Creatinine Pending
Glucose Pending
Calcium Pending
Vital Signs:
Vital Signs
Temp Pulse Resp BP Pulse Ox
97.9 F 98 16 145/98 98
03/17/24 03:29 03/17/24 03:29 03/17/24 03:29 03/17/24 03:29 03/17/24 03:29
I&O
03/16/24 03/17/24 03/18/24
06:59 06:59 06:59
Intake Total 1420 / 1420 580 / 580
Output Total 2300 / 2300 300 / 300
Balance -880 / -880 280 / 280
[2024-03-17] MEDS: NOVOLOG FLEXPEN 12 UNITS SC (08:46)
[2024-03-17] MEDS: NOVOLOG FLEXPEN-MODERATE RESISTANCE 1 UNITS SC (08:47)
[2024-03-17] MEDS: COZAAR 100 MG PO (08:48)
[2024-03-17] MEDS: SENOKOT-S 1 TABLET PO (08:48)
[2024-03-17] MEDS: PROTONIX 40 MG PO (08:48)
[2024-03-17] MEDS: NORVASC 5 MG PO (08:49)
[2024-03-17] MEDS: ULTRAM 50 MG PO (09:03)
[2024-03-17 09:15] LABS: Hemoglobin 12.7 g/dL (13.0-18.0); Mean Corp Hgb Conc. 34.3 g/dL (33.0-37.0); Mean Corpuscular Hgb 29.7 pg (27.0-31.0); Mean Corpuscular Volume 86.7 fL (80.0-94.0); Mean Platelet Volume 10.5 fL (7.4-10.4); Platelet Count 256 10^3/uL (130-400); Red Blood Cell Count 4.27 10^6/uL (4.70-6.10); Red Cell Dist. Width 12.3 % (11.5-14.5); White Blood Cell Count 7.5 10^3/uL (4.8-10.8)
[2024-03-17 09:28] LABS: Blood Urea Nitrogen 16 mg/dl (9-20); Calcium 8.8 mg/dl (8.4-10.2); Carbon Dioxide 27 mmol/L (22-30); Chloride 98 mmol/L (98-107); Estimated Creatinine Clearance > 125 ml/min; Glucose 191 mg/dl (70-99); Potassium 4.2 mmol/L (3.5-5.1); Sodium 135 mmol/L (135-145); eGFR > 60.00
[2024-03-17] MEDS: NOVOLOG FLEXPEN SC (11:08)
[2024-03-17] MEDS: NOVOLOG FLEXPEN-MODERATE RESISTANCE SC (11:09)
--- NOTE | 2024-03-17 13:44 | W.DCSUMMARY ---
Discharge Summary
Discharge Data
Date of Admission: 03/13/24
Date of Discharge: 03/17/24
-
Pending Results: No
Hospital Course
Discharge diagnosis:
Sepsis
Left lower lip cellulitis and abscess
History of alcohol abuse
Uncontrolled type 2 diabetes
Hypertensive urgency
Gastroesophageal reflux disease
Consults: ENT
Hospital course:
53-year-old male with a past medical history of alcohol abuse, diabetes, and GERD was admitted for sepsis secondary to left lower lip cellulitis and abscess. Patient was seen in conjunction of ENT, and had incision and drainage of his left lower
lip abscess. He was treated with IV clindamycin. Cultures grew out MSSA.
Patient's hospital course was complicated by hypertensive urgency. He is not on any blood pressure medications at home. He was started on losartan 100 mg daily, and amlodipine 5 mg daily. His blood pressure improved, he can continue these
medications upon discharge.
Patient also has a history of diabetes. His hemoglobin A1c is uncontrolled at 9.2. He required more insulin in the hospital. He states that he has Trulicity waiting for him at his pharmacy. He was unable to take it for 2 months because it was
out of stock. Since he will go back on his Trulicity, we will keep his insulin regimen the same upon discharge.
Patient is medically stable for discharge. Will discharge him on clindamycin to complete a 10-day course. He needs to follow-up with his primary care doctor in 1 week.
Disposition: Home self-care
Discharge planning: Required 39-minutes
Discharge Plan
-
Patient Disposition: Home (Routine Discharge)
Discharge Diagnosis/Procedures: Left lower lip abscess, uncontrolled diabetes, hypertension
Condition: Good
Diet: Diabetic, Carb Controlled
Activity: As tolerated
Driving Restrictions: As prior to admission
Activity Restrictions/Additional Instructions:
Your hemoglobin A1c is uncontrolled at 9.2. You required more insulin in the hospital.
Since are resuming your Trulicity, would recommend you stay on your current insulin regimen.
Your blood pressure in the hospital was elevated, we have prescribed you 2 blood pressure medications.
Follow-up with your primary care doctor in 1 week.
Referrals:
Jude Chow MD [Family Provider] - in one week
Prescriptions:
New
clindamycin HCl 300 mg capsule
300 mg PO TID 4 Days Qty: 12 0RF
losartan 100 mg tablet
100 mg PO DAILY Qty: 30 0RF
thiamine HCl (vitamin B1) 100 mg Tablet
100 mg PO DAILY Qty: 30 0RF
amlodipine 5 mg Tablet
5 mg PO DAILY Qty: 30 0RF
polyethylene glycol 3350 17 gram/dose powder
17 g PO DAILY Qty: 510 0RF
Continued
insulin glargine [Lantus Solostar U-100 Insulin] 300 UNITS/3 ML insulin pen
22 units SC HS
omeprazole 40 mg Capsule,Delayed Release(Dr/Ec)
40 mg PO DAILY
tramadol 50 mg Tablet
50 mg PO TIDPRN PRN (Reason: moderate pain)
zolpidem 5 mg Tablet
5 mg PO HSPRN PRN (Reason: sleep)
Changed
ibuprofen 200 MG tablet
800 mg PO TIDPRN PRN (Reason: back/shoulder pain) Qty: 0 0RF
Discontinued
cephalexin 500 mg Tablet
500 mg PO QID
Discharge Orders:
Discharge Patient (As Directed); Ordered 03/17/24
Ordered By: Domingo Baugh
Discharge Date and Time
Discharge Date/Time: 03/17/24 11:30
Print Language: [place]ET[place]ESE
== END 2024-03-17 11:30 | disposition home or self-care (01) | DRG 872 ==
LOC: 4 WEST ACU 23:23
PROVIDERS: Clinical Nurse Specialist Family Health; Family Medicine; Physician Assistant; Registered Nurse; Student in an Organized Health Care Education/Training Program; ADMITTING PHYSICIAN Hospitalist; ATTENDING PHYSICIAN Family Medicine; EMERGENCY PHYSICIAN Emergency Medicine; FAMILY PHYSICIAN Internal Medicine; OTHER PHYSICIAN Otolaryngology
DX: A41.9 Sepsis, unspecified organism (principal); I16.1 Hypertensive emergency; E87.1 Hypo-osmolality and hyponatremia; K13.0 Diseases of lips; F10.11 Alcohol abuse, in remission; E11.65 Type 2 diabetes mellitus with hyperglycemia; K21.9 Gastro-esophageal reflux disease without esophagitis; I10 Essential (primary) hypertension; Z53.29 Procedure and treatment not carried out because of patient's decision for other reasons; G43.909 Migraine, unspecified, not intractable, without status migrainosus; F31.9 Bipolar disorder, unspecified; M19.90 Unspecified osteoarthritis, unspecified site; Z87.891 Personal history of nicotine dependence; Z88.0 Allergy status to penicillin; Z88.5 Allergy status to narcotic agent; Z88.1 Allergy status to other antibiotic agents; Z79.4 Long term (current) use of insulin; F41.9 Anxiety disorder, unspecified; E78.5 Hyperlipidemia, unspecified; B95.61 Methicillin susceptible Staphylococcus aureus infection as the cause of diseases classified elsewhere; I25.10 Atherosclerotic heart disease of native coronary artery without angina pectoris; I83.90 Asymptomatic varicose veins of unspecified lower extremity; J45.909 Unspecified asthma, uncomplicated; M51.9 Unspecified thoracic, thoracolumbar and lumbosacral intervertebral disc disorder; R13.10 Dysphagia, unspecified; T46.5X6A Underdosing of other antihypertensive drugs, initial encounter; Z91.148 Patient's other noncompliance with medication regimen for other reason
CPT/HCPCS: 70491; 80048; 80053; 81003; 82010; 82947; 82962; 83036; 83605; 85025; 85027; 87040; 87070; 87147; 87186; 87205; 96372; 96374; 96375; 99285; J2185; Q9967

== ENCOUNTER → 2025-01-22 13:40 | Outpatient (REF) | payer OTHER, SELFPAY | LOC: HWRCS 13:40 | PROVIDERS: ATTENDING PHYSICIAN Internal Medicine Cardiovascular Disease; FAMILY PHYSICIAN Hospitalist | DX: R06.09 Other forms of dyspnea (principal) | CPT/HCPCS: 93306 ==

== ENCOUNTER → 2025-01-29 12:55 | Outpatient (REF) | payer OTHER, SELFPAY ==
--- NOTE | 2025-01-29 13:48 | CARDSERVLU ---
Echocardiogram with [facility] completed after protocol screening completed. Allergies verified.
Here for stress echo.
Patent IV site: __new start 1st attempt 20P RAC___
IV site flushed with 0.9% NaCl pre and post administration.
Diluted bolus method utilized to enhance visualization of ventricular bah.
Total volume given: ___3.0 and 2.0_ mL in divided doses
site dcd at completion of test.
Patient tolerated all procedures well without complications.
== END ==
LOC: RCS 12:55
PROVIDERS: ATTENDING PHYSICIAN Internal Medicine Cardiovascular Disease; FAMILY PHYSICIAN Hospitalist
DX: R06.09 Other forms of dyspnea (principal)
CPT/HCPCS: 93017; 93350; Q9950